=== PATIENT | male | born 1945 | race African-American/Black ===

== ENCOUNTER → 2016-03-19 | Day surgery (SDC) | payer MEDICARE, BC ==
[~2016-03-19] MED LIST: ALLO300T2 PO; AMLO10TA80 PO; ASPI-1035 PO; ATEN50TA PO; CEPH500C2 PO; CLOP75TA2 PO; FERR-63 PO; FINA5TAB11 PO; GABA-290 PO; GABA-531 PO; HYDR-523 PO; LOVA20TA2 PO; LOVA40TA73 PO; METF10002 PO; MORP30TA66 PO; MULT-1146 PO; OMEP20CA10 PO; OXYC10TA48 PO; POTA10TA69 PO; SIMETHICONE 40 MG/0.6 ML 30ML ONE; SODIUM CHLORIDE 0.9% 10ML VIAL ONE; SUCR1ORA PO; TAMS-11 PO; TRAM50TA3 PO; TRIA1CAP6 PO; VALS320T9 PO; ZOLP10TA2 PO
== END | disposition home or self-care (01) ==
LOC: CCL 09:00
PROVIDERS: ATTEND Specialist
DX: D64.9 Anemia, unspecified (principal)
CPT/HCPCS: 37224; 37230; 75710; 88305; 88313; A4216; C1725; C1760; C1769; C1893; C1894

== ENCOUNTER 2016-06-15 18:40 | Inpatient (IN) | payer MEDICARE, BC ==
[~2016-06-15] VITALS: Ht 175.3 cm; Wt 76.7 kg
[~2016-06-15 18:40] MED LIST changes: +AMLO10TA4 PO; +ATEN-42 PO; -CLOP75TA2 PO; +CLOP75TA33 PO; -GABA-531 PO; -HYDR-523 PO; -LOVA40TA73 PO; -MULT-1146 PO; +OXYC-159 PO; -SIMETHICONE 40 MG/0.6 ML 30ML ONE; -SODIUM CHLORIDE 0.9% 10ML VIAL ONE; +TAMS0.4C31 PO; -TRAM50TA3 PO; +ZOLP10TA6 PO
[2016-06-15] MEDS ORDERED: CLONIDINE 0.1MG TABLET PO PRN (19:45)
[2016-06-15 20:00] VITALS: BP 125/66
[2016-06-15] MEDS ORDERED: IPRATROPIUM/ALBUTEROL 0.5-3(2.5)MG/3ML NEB HHN PRN (20:00)
[2016-06-15] MEDS ORDERED: CLONIDINE 0.2MG TABLET PO PRN (20:00)
[2016-06-15] MEDS ORDERED: DEXTROSE 50% WATER 50ML SYRINGE IV PRN (20:15)
[2016-06-15] MEDS ORDERED: GUAIFENESIN 200MG/10ML SUGAR FREE UDC PO PRN (20:15)
[2016-06-15] MEDS ORDERED: DOCUSATE SODIUM 100MG CAPSULE PO PRN (20:15)
[2016-06-15] MEDS ORDERED: NA PHOS,M-B/NA PHOS,DI-BA ENEMA 118ML PR PRN (20:15)
[2016-06-15] MEDS ORDERED: NITROGLYCERIN 0.4MG TABLET SL SL PRN (20:15)
[2016-06-15] MEDS: ASCORBIC ACID 500 MG TABLET PO SCH (20:50)
[2016-06-15] MEDS: SUCRALFATE 1G TABLET PO SCH (20:50)
[2016-06-15] MEDS: METOPROLOL TARTRATE 25MG TABLET PO SCH (20:50)
[2016-06-15] MEDS: AMLODIPINE 5MG TABLET PO SCH (20:51)
[2016-06-15] MEDS: OXYCODONE HCL 10MG TABLET SR 12HR PO SCH (20:54)
[2016-06-15] MEDS: INSULIN LISPRO 100 UNITS/ML SUBCUT SCH (21:02)
[2016-06-15] MEDS: BLOOD SUGAR DIAGNOSTIC STRIP TEST SCH (21:03)
[2016-06-15] MEDS: ZOLPIDEM TARTRATE 5MG TABLET PO PRN (22:39)
[2016-06-16] MEDS: OXYCODONE HCL 5MG TABLET PO PRN (02:23)
[2016-06-16 06:28] LABS: BASOPHILS % 0.4 % (0.0-2.0); EOSINOPHILS % 0.5 % (0.0-5.0); HEMATOCRIT. 25.6 % (42.0-52.0); HEMOGLOBIN. 8.7 g/dL (14.0-18.0); MEAN CORPUSCULAR HEMOGLOBIN 28.7 pg (28.0-32.0); MEAN CORPUSCULAR HGB CONC 33.9 g/dL (31.0-37.0); MEAN CORPUSCULAR VOLUME 84.6 fL (80.0-94.0); MEAN PLATELET VOLUME 7.1 fl (7.4-10.4); MONOCYTES % 9.8 % (2.0-8.0); NEUTROPHILS % 78.3 % (40.0-76.0); PLATELET 444 x1000/uL (130-400); RED BLOOD CELL COUNT 3.03 mill/uL (4.7-6.1); RED CELL DISTRIBUTION WIDTH 14.9 % (11.6-14.6)
[2016-06-16] MEDS: SUCRALFATE 1G TABLET PO SCH ×4 (06:31→20:52)
[2016-06-16] MEDS: BLOOD SUGAR DIAGNOSTIC STRIP TEST SCH ×4 (06:31→21:47)
[2016-06-16] MEDS: INSULIN LISPRO 100 UNITS/ML SUBCUT SCH ×4 (06:31→20:56)
[2016-06-16 07:00] LABS: ALANINE AMINOTRANSFERASE 24 IU/L (13-61); ANION GAP 9; CALCIUM 9.4 mg/dL (8.5-10.1); CARBON DIOXIDE 29 mEq/L (21-32); CHLORIDE 104 mEq/L (98-107); INDEX HEMOLYSI 1 (1-3); INDEX ICTERIC 1 (1-4); INDEX LIPEMIC 1 (1-3); PREALBUMIN 13.8 mg/dL (20.0-40.0); UREA NITROGEN BLOOD 13 mg/dL (7-21); eGFR > 60 mL/min (>60)
[2016-06-16 08:00] VITALS: BP 146/71
[2016-06-16] MEDS: FAMOTIDINE 20MG TABLET PO SCH ×2 (08:02→17:33)
[2016-06-16] MEDS: METOPROLOL TARTRATE 25MG TABLET PO SCH ×2 (08:02→20:53)
[2016-06-16] MEDS: ALLOPURINOL 100 MG TABLET PO SCH (08:02)
[2016-06-16] MEDS: ASCORBIC ACID 500 MG TABLET PO SCH ×2 (08:02→20:52)
[2016-06-16] MEDS: FINASTERIDE 5MG TABLET PO SCH (08:03)
[2016-06-16] MEDS: AMLODIPINE 5MG TABLET PO SCH ×2 (08:03→20:53)
[2016-06-16] MEDS: TAMSULOSIN HCL 0.4MG SR CAPSULE PO SCH (08:03)
[2016-06-16] MEDS: ZINC SULFATE 220 MG ( 50 ) CAPSULE PO SCH (08:03)
[2016-06-16] MEDS: OXYCODONE HCL 10MG TABLET SR 12HR PO SCH ×2 (08:04→20:52)
[2016-06-16] MEDS: LIDOCAINE 5% PATCH TOP SCH (08:07)
[2016-06-16] MEDS ORDERED: HYDROCODONE/ACETAMINOPHEN 10/325MG TABLET PO PRN (10:30)
[2016-06-16] MEDS: OXYCODONE HCL 10MG TABLET SR 12HR PO PRN (15:14)
[2016-06-16 20:00] VITALS: BP 136/66
[2016-06-16] MEDS ORDERED: LACTULOSE 20G/30ML UDC PO PRN (21:00)
[2016-06-16] MEDS ORDERED: NEOMY SULF/BACITRAC ZN/POLY OINT 28GM TOP SCH (21:00)
[2016-06-17] MEDS: ACETAMINOPHEN 325MG TABLET PO PRN ×2 (00:07→09:49)
[2016-06-17] MEDS: ZOLPIDEM TARTRATE 5MG TABLET PO PRN (00:07)
[2016-06-17] MEDS: OXYCODONE HCL 10MG TABLET SR 12HR PO PRN ×2 (04:01→14:17)
[2016-06-17] MEDS: BLOOD SUGAR DIAGNOSTIC STRIP TEST SCH ×4 (05:58→20:56)
[2016-06-17] MEDS: SUCRALFATE 1G TABLET PO SCH ×4 (05:59→20:57)
[2016-06-17 08:00] VITALS: BP 121/62
[2016-06-17] MEDS: AMLODIPINE 5MG TABLET PO SCH ×2 (08:41→20:58)
[2016-06-17] MEDS: LIDOCAINE 5% PATCH TOP SCH (08:41)
[2016-06-17] MEDS: METOPROLOL TARTRATE 25MG TABLET PO SCH ×2 (08:42→20:57)
[2016-06-17] MEDS: ALLOPURINOL 100 MG TABLET PO SCH (08:42)
[2016-06-17] MEDS: FAMOTIDINE 20MG TABLET PO SCH ×2 (08:42→17:39)
[2016-06-17] MEDS: ASCORBIC ACID 500 MG TABLET PO SCH ×2 (08:43→20:57)
[2016-06-17] MEDS: OXYCODONE HCL 10MG TABLET SR 12HR PO SCH ×2 (08:43→20:58)
[2016-06-17] MEDS: FINASTERIDE 5MG TABLET PO SCH (08:44)
[2016-06-17] MEDS: ZINC SULFATE 220 MG ( 50 ) CAPSULE PO SCH (08:44)
[2016-06-17] MEDS: TAMSULOSIN HCL 0.4MG SR CAPSULE PO SCH (08:44)
[2016-06-17] MEDS: INSULIN LISPRO 100 UNITS/ML SUBCUT SCH ×4 (08:46→21:24)
[2016-06-17] MEDS ORDERED: ZINC SULFATE 220 MG ( 50 ) CAPSULE PO SCH (13:15)
[2016-06-17] MEDS: MUPIROCIN 2% OINT 22GM TOP SCH (17:42)
[2016-06-17] MEDS ORDERED: MUPIROCIN 2% OINT 22GM TOP SCH (18:00)
[2016-06-17] MEDS: HEPARIN 5000 UNITS/ML VIAL SUBCUT SCH (18:02)
[2016-06-17] MEDS: OXYCODONE HCL 5MG TABLET PO PRN (18:03)
[2016-06-17 20:00] VITALS: BP 129/66
[2016-06-17] MEDS: EPOETIN ALFA 10000UNITS/ML VIAL SUBCUT SCH (20:59)
[2016-06-17] MEDS: GABAPENTIN 100MG CAPSULE PO SCH (21:22)
[2016-06-18] MEDS: OXYCODONE HCL 10MG TABLET SR 12HR PO PRN ×3 (02:28→16:39)
[2016-06-18] MEDS: SUCRALFATE 1G TABLET PO SCH ×4 (05:30→21:35)
[2016-06-18] MEDS: GABAPENTIN 100MG CAPSULE PO SCH ×3 (05:30→21:35)
[2016-06-18] MEDS: BLOOD SUGAR DIAGNOSTIC STRIP TEST SCH ×4 (06:26→21:40)
[2016-06-18 06:40] LABS: BASOPHILS % 0.5 % (0.0-2.0); EOSINOPHILS % 0.6 % (0.0-5.0); HEMOGLOBIN. 8.6 g/dL (14.0-18.0); LYMPHOCYTES % 13.5 % (20.0-50.0); MEAN CORPUSCULAR HEMOGLOBIN 28.5 pg (28.0-32.0); MEAN CORPUSCULAR HGB CONC 33.1 g/dL (31.0-37.0); MEAN CORPUSCULAR VOLUME 86.2 fL (80.0-94.0); MONOCYTES % 9.2 % (2.0-8.0); NEUTROPHILS % 76.2 % (40.0-76.0); PLATELET 473 x1000/uL (130-400); RED BLOOD CELL COUNT 3.01 mill/uL (4.7-6.1); RED CELL DISTRIBUTION WIDTH 14.8 % (11.6-14.6); WHITE BLOOD COUNT 9.5 x1000/uL (4.5-11.0)
[2016-06-18 07:05] LABS: ALANINE AMINOTRANSFERASE 25 IU/L (13-61); ALBUMIN 2.1 g/dL (3.4-5.0); ANION GAP 12; CALCIUM 9.4 mg/dL (8.5-10.1); CARBON DIOXIDE 28 mEq/L (21-32); CHLORIDE 102 mEq/L (98-107); HDL CHOLESTEROL 34 mg/dL (40-59); INDEX HEMOLYSI 1 (1-3); INDEX ICTERIC 1 (1-4); INDEX LIPEMIC 1 (1-3); IRON 21 ug/dL (50-175); LDL CHOLESTEROL 71 mg/dL (5-100); MAGNESIUM 1.5 mg/dL (1.8-2.4); PHOSPHORUS 2.5 mg/dL (2.5-4.9); TOTAL IRON BINDING CAPACITY 151 ug/dL (250-450); TRIGLYCERIDE 123 mg/dL (0-150); UREA NITROGEN BLOOD 11 mg/dL (7-21); eGFR > 60 mL/min (>60)
[2016-06-18] MEDS: INSULIN LISPRO 100 UNITS/ML SUBCUT SCH ×4 (07:15→21:00)
[2016-06-18 07:22] LABS: PROSTRATE SPECIFIC AG TOTAL 0.44 ng/mL (0.0-4.0)
[2016-06-18 08:00] VITALS: BP 142/67
[2016-06-18 08:11] LABS: FOLIC ACID (FOLATE) SERUM 11.5 ng/mL (>5.38)
[2016-06-18] MEDS: OXYCODONE HCL 10MG TABLET SR 12HR PO SCH (08:20)
[2016-06-18] MEDS: ZINC SULFATE 220 MG ( 50 ) CAPSULE PO SCH (08:21)
[2016-06-18] MEDS: ASCORBIC ACID 500 MG TABLET PO SCH ×2 (08:21→21:35)
[2016-06-18] MEDS: FAMOTIDINE 20MG TABLET PO SCH ×2 (08:22→16:39)
[2016-06-18] MEDS: ALLOPURINOL 100 MG TABLET PO SCH (08:22)
[2016-06-18] MEDS: TAMSULOSIN HCL 0.4MG SR CAPSULE PO SCH (08:22)
[2016-06-18] MEDS: AMLODIPINE 5MG TABLET PO SCH ×2 (08:22→21:00)
[2016-06-18] MEDS: FINASTERIDE 5MG TABLET PO SCH (08:22)
[2016-06-18] MEDS: METOPROLOL TARTRATE 25MG TABLET PO SCH ×2 (08:22→21:00)
[2016-06-18] MEDS: LIDOCAINE 5% PATCH TOP SCH (08:24)
[2016-06-18] MEDS: HEPARIN 5000 UNITS/ML VIAL SUBCUT SCH ×2 (08:24→21:40)
[2016-06-18] MEDS: MUPIROCIN 2% OINT 22GM TOP SCH ×2 (08:28→16:42)
[2016-06-18] MEDS: FERROUS SULFATE 325MG TABLET PO SCH ×3 (08:39→16:39)
[2016-06-18] MEDS: OXYCODONE HCL 5MG TABLET PO PRN (13:24)
[2016-06-18] MEDS: MAGNESIUM OXIDE 400MG TABLET PO SCH (17:40)
[2016-06-18 20:00] VITALS: BP 116/57
[2016-06-18] MEDS: OXYCODONE HCL 20MG TABLET SR 12HR PO SCH (21:38)
[2016-06-19] MEDS: SUCRALFATE 1G TABLET PO SCH ×4 (05:58→22:18)
[2016-06-19] MEDS: GABAPENTIN 100MG CAPSULE PO SCH ×3 (05:58→22:17)
[2016-06-19] MEDS: BLOOD SUGAR DIAGNOSTIC STRIP TEST SCH ×4 (05:59→21:00)
[2016-06-19] MEDS: INSULIN LISPRO 100 UNITS/ML SUBCUT SCH ×4 (06:43→22:53)
[2016-06-19 08:00] VITALS: BP 150/71
[2016-06-19] MEDS: AMLODIPINE 5MG TABLET PO SCH ×2 (08:04→21:00)
[2016-06-19] MEDS: METOPROLOL TARTRATE 25MG TABLET PO SCH ×2 (08:04→21:00)
[2016-06-19] MEDS: FINASTERIDE 5MG TABLET PO SCH (08:16)
[2016-06-19] MEDS: ASCORBIC ACID 500 MG TABLET PO SCH ×2 (08:16→22:17)
[2016-06-19] MEDS: FAMOTIDINE 20MG TABLET PO SCH ×2 (08:17→17:23)
[2016-06-19] MEDS: TAMSULOSIN HCL 0.4MG SR CAPSULE PO SCH (08:17)
[2016-06-19] MEDS: ZINC SULFATE 220 MG ( 50 ) CAPSULE PO SCH (08:18)
[2016-06-19] MEDS: MAGNESIUM OXIDE 400MG TABLET PO SCH ×2 (08:19→17:23)
[2016-06-19] MEDS: FERROUS SULFATE 325MG TABLET PO SCH ×3 (08:19→17:23)
[2016-06-19] MEDS: ALLOPURINOL 100 MG TABLET PO SCH (08:20)
[2016-06-19] MEDS: OXYCODONE HCL 20MG TABLET SR 12HR PO SCH ×2 (08:21→22:20)
[2016-06-19] MEDS: CYANOCOBALAMIN 1000MCG/ML VIAL IM SCH (08:22)
[2016-06-19] MEDS: HEPARIN 5000 UNITS/ML VIAL SUBCUT SCH (08:26)
[2016-06-19] MEDS: MUPIROCIN 2% OINT 22GM TOP SCH ×2 (08:29→17:26)
[2016-06-19] MEDS: LIDOCAINE 5% PATCH TOP SCH (08:29)
[2016-06-19 08:59] LABS: EOSINOPHILS % 0.7 % (0.0-5.0); HEMATOCRIT. 26.1 % (42.0-52.0); HEMOGLOBIN. 8.5 g/dL (14.0-18.0); LYMPHOCYTES % 10.3 % (20.0-50.0); MEAN CORPUSCULAR HEMOGLOBIN 27.7 pg (28.0-32.0); MEAN CORPUSCULAR HGB CONC 32.5 g/dL (31.0-37.0); MEAN CORPUSCULAR VOLUME 85.3 fL (80.0-94.0); MEAN PLATELET VOLUME 6.5 fl (7.4-10.4); MONOCYTES % 8.6 % (2.0-8.0); NEUTROPHILS % 79.4 % (40.0-76.0); PLATELET 468 x1000/uL (130-400); RED BLOOD CELL COUNT 3.06 mill/uL (4.7-6.1); RED CELL DISTRIBUTION WIDTH 14.9 % (11.6-14.6); WHITE BLOOD COUNT 8.5 x1000/uL (4.5-11.0)
[2016-06-19 09:23] LABS: MAGNESIUM 1.5 mg/dL (1.8-2.4)
[2016-06-19] MEDS: OXYCODONE HCL 5MG TABLET PO PRN (12:16)
[2016-06-19] MEDS: OXYCODONE HCL 10MG TABLET SR 12HR PO PRN (15:41)
[2016-06-19 20:00] VITALS: BP 130/72
[2016-06-19] MEDS ORDERED: MAGNESIUM 2 G PREMIX 50 ML IV NR (21:00)
[2016-06-19] MEDS: LACTULOSE 20G/30ML UDC PO SCH (22:17)
[2016-06-19] MEDS: EPOETIN ALFA 10000UNITS/ML VIAL SUBCUT SCH (22:52)
[2016-06-20 05:39] LABS: BASOPHILS % 0.5 % (0.0-2.0); EOSINOPHILS % 0.7 % (0.0-5.0); HEMATOCRIT. 28.9 % (42.0-52.0); HEMOGLOBIN. 9.4 g/dL (14.0-18.0); LYMPHOCYTES % 29.7 % (20.0-50.0); MEAN CORPUSCULAR HEMOGLOBIN 27.8 pg (28.0-32.0); MEAN CORPUSCULAR HGB CONC 32.6 g/dL (31.0-37.0); MEAN CORPUSCULAR VOLUME 85.1 fL (80.0-94.0); MEAN PLATELET VOLUME 6.8 fl (7.4-10.4); MONOCYTES % 9.5 % (2.0-8.0); NEUTROPHILS % 59.6 % (40.0-76.0); PLATELET 554 x1000/uL (130-400); RED BLOOD CELL COUNT 3.39 mill/uL (4.7-6.1); RED CELL DISTRIBUTION WIDTH 14.9 % (11.6-14.6); WHITE BLOOD COUNT 12.2 x1000/uL (4.5-11.0)
[2016-06-20] MEDS: GABAPENTIN 100MG CAPSULE PO SCH ×3 (06:11→21:30)
[2016-06-20] MEDS: SUCRALFATE 1G TABLET PO SCH ×4 (06:11→21:30)
[2016-06-20] MEDS: BLOOD SUGAR DIAGNOSTIC STRIP TEST SCH ×4 (06:12→21:13)
[2016-06-20] MEDS: OXYCODONE HCL 10MG TABLET SR 12HR PO PRN ×2 (06:21→13:15)
[2016-06-20 07:20] LABS: ANION GAP 14; CALCIUM 9.7 mg/dL (8.5-10.1); CARBON DIOXIDE 27 mEq/L (21-32); CHLORIDE 100 mEq/L (98-107); INDEX HEMOLYSI 1 (1-3); INDEX ICTERIC 1 (1-4); INDEX LIPEMIC 1 (1-3); UREA NITROGEN BLOOD 11 mg/dL (7-21); eGFR > 60 mL/min (>60)
[2016-06-20 08:00] VITALS: BP 123/58
[2016-06-20] MEDS: INSULIN LISPRO 100 UNITS/ML SUBCUT SCH ×4 (09:00→21:00)
[2016-06-20] MEDS: ZINC SULFATE 220 MG ( 50 ) CAPSULE PO SCH (09:16)
[2016-06-20] MEDS: TAMSULOSIN HCL 0.4MG SR CAPSULE PO SCH (09:16)
[2016-06-20] MEDS: FERROUS SULFATE 325MG TABLET PO SCH ×3 (09:16→17:47)
[2016-06-20] MEDS: FINASTERIDE 5MG TABLET PO SCH (09:16)
[2016-06-20] MEDS: LIDOCAINE 5% PATCH TOP SCH (09:17)
[2016-06-20] MEDS: METOPROLOL TARTRATE 25MG TABLET PO SCH ×2 (09:17→21:00)
[2016-06-20] MEDS: ALLOPURINOL 100 MG TABLET PO SCH (09:17)
[2016-06-20] MEDS: AMLODIPINE 5MG TABLET PO SCH ×2 (09:17→21:00)
[2016-06-20] MEDS: LACTULOSE 20G/30ML UDC PO SCH (09:18)
[2016-06-20] MEDS: ASPIRIN 81MG EC TABLET PO SCH (09:18)
[2016-06-20] MEDS: FAMOTIDINE 20MG TABLET PO SCH ×2 (09:18→17:47)
[2016-06-20] MEDS: OXYCODONE HCL 20MG TABLET SR 12HR PO SCH ×2 (09:18→21:31)
[2016-06-20] MEDS: ASCORBIC ACID 500 MG TABLET PO SCH ×2 (09:18→21:30)
[2016-06-20] MEDS: CYANOCOBALAMIN 1000MCG/ML VIAL IM SCH (09:18)
[2016-06-20] MEDS: MAGNESIUM OXIDE 400MG TABLET PO SCH ×3 (09:18→17:46)
[2016-06-20] MEDS: MUPIROCIN 2% OINT 22GM TOP SCH ×2 (09:21→17:47)
[2016-06-20] MEDS: OXYCODONE HCL 5MG TABLET PO PRN (17:47)
[2016-06-20 20:28] VITALS: BP 117/63
[2016-06-21] VITALS (10 sets, daily range): BP systolic 108–159; BP diastolic 51–78
[2016-06-21] MEDS: ZOLPIDEM TARTRATE 5MG TABLET PO PRN (00:34)
[2016-06-21 05:28] LABS: BASOPHILS % 0.7 % (0.0-2.0); EOSINOPHILS % 1.7 % (0.0-5.0); HEMATOCRIT. 24.6 % (42.0-52.0); HEMOGLOBIN. 8.1 g/dL (14.0-18.0); LYMPHOCYTES % 18.4 % (20.0-50.0); MEAN CORPUSCULAR HEMOGLOBIN 28.2 pg (28.0-32.0); MEAN CORPUSCULAR HGB CONC 32.9 g/dL (31.0-37.0); MEAN CORPUSCULAR VOLUME 85.7 fL (80.0-94.0); MEAN PLATELET VOLUME 6.8 fl (7.4-10.4); MONOCYTES % 11.2 % (2.0-8.0); PLATELET 434 x1000/uL (130-400); RED BLOOD CELL COUNT 2.87 mill/uL (4.7-6.1); RED CELL DISTRIBUTION WIDTH 14.7 % (11.6-14.6); WHITE BLOOD COUNT 6.8 x1000/uL (4.5-11.0)
[2016-06-21] MEDS: SUCRALFATE 1G TABLET PO SCH ×4 (06:10→23:34)
[2016-06-21] MEDS: BLOOD SUGAR DIAGNOSTIC STRIP TEST SCH ×4 (06:10→21:00)
[2016-06-21 06:26] LABS: MAGNESIUM 1.8 mg/dL (1.8-2.4)
[2016-06-21] MEDS: INSULIN LISPRO 100 UNITS/ML SUBCUT SCH ×4 (06:40→21:00)
[2016-06-21] MEDS: CYANOCOBALAMIN 1000MCG/ML VIAL IM SCH (08:45)
[2016-06-21] MEDS: LACTULOSE 20G/30ML UDC PO SCH (08:45)
[2016-06-21] MEDS: ASPIRIN 81MG EC TABLET PO SCH (08:46)
[2016-06-21] MEDS: OXYCODONE HCL 20MG TABLET SR 12HR PO SCH ×2 (08:46→23:33)
[2016-06-21] MEDS: MUPIROCIN 2% OINT 22GM TOP SCH ×2 (08:47→16:46)
[2016-06-21] MEDS: MAGNESIUM OXIDE 400MG TABLET PO SCH ×2 (08:48→16:44)
[2016-06-21] MEDS: ZINC SULFATE 220 MG ( 50 ) CAPSULE PO SCH (08:48)
[2016-06-21] MEDS: ASCORBIC ACID 500 MG TABLET PO SCH ×2 (08:48→23:34)
[2016-06-21] MEDS: FAMOTIDINE 20MG TABLET PO SCH ×2 (08:48→16:44)
[2016-06-21] MEDS: FINASTERIDE 5MG TABLET PO SCH (08:48)
[2016-06-21] MEDS: FERROUS SULFATE 325MG TABLET PO SCH ×3 (08:48→16:44)
[2016-06-21] MEDS: TAMSULOSIN HCL 0.4MG SR CAPSULE PO SCH (08:49)
[2016-06-21] MEDS: METOPROLOL TARTRATE 25MG TABLET PO SCH ×2 (08:49→23:35)
[2016-06-21] MEDS: ALLOPURINOL 100 MG TABLET PO SCH (08:49)
[2016-06-21] MEDS: AMLODIPINE 5MG TABLET PO SCH ×2 (08:49→23:34)
[2016-06-21] MEDS: LIDOCAINE 5% PATCH TOP SCH (08:56)
[2016-06-21 09:06] LABS: 25-HYDROXY VITAMIN D3 18 ng/mL (.)
[2016-06-21] MEDS ORDERED: BISACODYL 10MG SUPP PR NR (10:00)
[2016-06-21] MEDS ORDERED: LACTULOSE 20G/30ML UDC PO PRN (10:15)
[2016-06-21] MEDS ORDERED: DIPHENHYDRAMINE 25MG CAPSULE PO NR (11:30)
[2016-06-21] MEDS ORDERED: ACETAMINOPHEN 500MG TABLET PO NR (11:30)
[2016-06-21] MEDS: OXYCODONE HCL 10MG TABLET SR 12HR PO PRN (14:24)
[2016-06-21] MEDS: DOCUSATE SODIUM 100MG CAPSULE PO SCH (16:47)
[2016-06-21] MEDS: POLYETHYLENE GLYCOL 3350 (17GM) 1 DOSE PACK PO SCH (21:00)
[2016-06-21] MEDS: GABAPENTIN 100MG CAPSULE PO SCH (23:33)
[2016-06-21] MEDS: EPOETIN ALFA 10000UNITS/ML VIAL SUBCUT SCH (23:37)
[2016-06-22 00:37] VITALS: BP 164/71
[2016-06-22 00:52] VITALS: BP 165/70
[2016-06-22] MEDS: ZOLPIDEM TARTRATE 5MG TABLET PO PRN ×2 (02:31→23:29)
[2016-06-22] MEDS: INSULIN LISPRO 100 UNITS/ML SUBCUT SCH ×4 (05:49→20:51)
[2016-06-22] MEDS: SUCRALFATE 1G TABLET PO SCH ×4 (05:49→20:27)
[2016-06-22] MEDS: BLOOD SUGAR DIAGNOSTIC STRIP TEST SCH ×4 (05:49→20:51)
[2016-06-22 08:00] VITALS: BP 158/66
[2016-06-22] MEDS: TAMSULOSIN HCL 0.4MG SR CAPSULE PO SCH (09:27)
[2016-06-22] MEDS: FAMOTIDINE 20MG TABLET PO SCH ×2 (09:27→17:13)
[2016-06-22] MEDS: ASPIRIN 81MG EC TABLET PO SCH (09:27)
[2016-06-22] MEDS: ALLOPURINOL 100 MG TABLET PO SCH (09:28)
[2016-06-22] MEDS: FERROUS SULFATE 325MG TABLET PO SCH ×3 (09:28→17:13)
[2016-06-22] MEDS: AMLODIPINE 5MG TABLET PO SCH ×2 (09:28→20:27)
[2016-06-22] MEDS: ASCORBIC ACID 500 MG TABLET PO SCH ×2 (09:28→20:27)
[2016-06-22] MEDS: FINASTERIDE 5MG TABLET PO SCH (09:28)
[2016-06-22] MEDS: MAGNESIUM OXIDE 400MG TABLET PO SCH ×2 (09:28→17:13)
[2016-06-22] MEDS: METOPROLOL TARTRATE 25MG TABLET PO SCH ×2 (09:28→21:07)
[2016-06-22] MEDS: CYANOCOBALAMIN 1000MCG/ML VIAL IM SCH (09:29)
[2016-06-22] MEDS: ZINC SULFATE 220 MG ( 50 ) CAPSULE PO SCH (09:29)
[2016-06-22] MEDS: LACTULOSE 20G/30ML UDC PO SCH (09:29)
[2016-06-22] MEDS: DOCUSATE SODIUM 100MG CAPSULE PO SCH ×2 (09:29→17:13)
[2016-06-22] MEDS: LIDOCAINE 5% PATCH TOP SCH (09:30)
[2016-06-22] MEDS ORDERED: ERGOCALCIFEROL 50000UNITS CAPSULE PO SCH (09:30)
[2016-06-22] MEDS: OXYCODONE HCL 20MG TABLET SR 12HR PO SCH ×2 (09:31→20:27)
[2016-06-22] MEDS: MUPIROCIN 2% OINT 22GM TOP SCH ×2 (10:49→17:14)
[2016-06-22 11:36] LABS: BASOPHILS % 0.6 % (0.0-2.0); EOSINOPHILS % 1.7 % (0.0-5.0); HEMATOCRIT. 33.9 % (42.0-52.0); HEMOGLOBIN. 11.3 g/dL (14.0-18.0); LYMPHOCYTES % 12.1 % (20.0-50.0); MEAN CORPUSCULAR HEMOGLOBIN 28.3 pg (28.0-32.0); MEAN CORPUSCULAR HGB CONC 33.4 g/dL (31.0-37.0); MEAN CORPUSCULAR VOLUME 84.7 fL (80.0-94.0); MONOCYTES % 8.9 % (2.0-8.0); NEUTROPHILS % 76.7 % (40.0-76.0); PLATELET 462 x1000/uL (130-400); RED CELL DISTRIBUTION WIDTH 15.1 % (11.6-14.6); WHITE BLOOD COUNT 8.2 x1000/uL (4.5-11.0)
[2016-06-22 11:55] LABS: ALANINE AMINOTRANSFERASE 22 IU/L (13-61); ALBUMIN 2.2 g/dL (3.4-5.0); ANION GAP 10; CALCIUM 9.2 mg/dL (8.5-10.1); CARBON DIOXIDE 30 mEq/L (21-32); CHLORIDE 103 mEq/L (98-107); INDEX HEMOLYSI 1 (1-3); INDEX ICTERIC 1 (1-4); INDEX LIPEMIC 1 (1-3); MAGNESIUM 1.7 mg/dL (1.8-2.4); PHOSPHORUS 2.5 mg/dL (2.5-4.9); UREA NITROGEN BLOOD 8 mg/dL (7-21); eGFR > 60 mL/min (>60)
[2016-06-22] MEDS: OXYCODONE HCL 10MG TABLET SR 12HR PO PRN (15:01)
[2016-06-22 20:00] VITALS: BP 115/81
[2016-06-22] MEDS: POLYETHYLENE GLYCOL 3350 (17GM) 1 DOSE PACK PO SCH (20:26)
[2016-06-22] MEDS: GABAPENTIN 100MG CAPSULE PO SCH (20:26)
[2016-06-23] MEDS: BLOOD SUGAR DIAGNOSTIC STRIP TEST SCH ×4 (06:11→21:00)
[2016-06-23] MEDS: SUCRALFATE 1G TABLET PO SCH ×4 (06:28→22:16)
[2016-06-23 06:48] LABS: BASOPHILS % 0.8 % (0.0-2.0); EOSINOPHILS % 1.7 % (0.0-5.0); HEMATOCRIT. 34.9 % (42.0-52.0); HEMOGLOBIN. 11.7 g/dL (14.0-18.0); LYMPHOCYTES % 18.4 % (20.0-50.0); MEAN CORPUSCULAR HEMOGLOBIN 28.4 pg (28.0-32.0); MEAN CORPUSCULAR HGB CONC 33.4 g/dL (31.0-37.0); MONOCYTES % 10.8 % (2.0-8.0); NEUTROPHILS % 68.3 % (40.0-76.0); PLATELET 450 x1000/uL (130-400); RED BLOOD CELL COUNT 4.11 mill/uL (4.7-6.1); RED CELL DISTRIBUTION WIDTH 14.6 % (11.6-14.6); WHITE BLOOD COUNT 7.4 x1000/uL (4.5-11.0)
[2016-06-23] MEDS: INSULIN LISPRO 100 UNITS/ML SUBCUT SCH ×4 (07:19→22:20)
[2016-06-23 08:00] VITALS: BP 145/72
[2016-06-23 08:02] LABS: CHLORIDE 102 mEq/L (98-107); INDEX HEMOLYSI 1 (1-3); INDEX ICTERIC 1 (1-4); INDEX LIPEMIC 1 (1-3)
[2016-06-23 08:13] LABS: ANION GAP 13; CALCIUM 9.1 mg/dL (8.5-10.1); CARBON DIOXIDE 28 mEq/L (21-32); MAGNESIUM 1.7 mg/dL (1.8-2.4); UREA NITROGEN BLOOD 9 mg/dL (7-21); eGFR > 60 mL/min (>60)
[2016-06-23] MEDS: OXYCODONE HCL 20MG TABLET SR 12HR PO SCH ×2 (08:38→22:19)
[2016-06-23] MEDS: LIDOCAINE 5% PATCH TOP SCH (08:39)
[2016-06-23] MEDS: LACTULOSE 20G/30ML UDC PO SCH ×4 (08:42→21:00)
[2016-06-23] MEDS: AMLODIPINE 5MG TABLET PO SCH ×2 (08:44→22:18)
[2016-06-23] MEDS: METOPROLOL TARTRATE 25MG TABLET PO SCH ×2 (08:44→22:17)
[2016-06-23] MEDS: TAMSULOSIN HCL 0.4MG SR CAPSULE PO SCH (08:44)
[2016-06-23] MEDS: FAMOTIDINE 20MG TABLET PO SCH ×2 (08:44→17:16)
[2016-06-23] MEDS: MAGNESIUM OXIDE 400MG TABLET PO SCH ×2 (08:44→17:16)
[2016-06-23] MEDS: ASPIRIN 81MG EC TABLET PO SCH (08:45)
[2016-06-23] MEDS: DOCUSATE SODIUM 100MG CAPSULE PO SCH ×2 (09:29→17:16)
[2016-06-23] MEDS: FINASTERIDE 5MG TABLET PO SCH (09:29)
[2016-06-23] MEDS: ALLOPURINOL 100 MG TABLET PO SCH (09:29)
[2016-06-23] MEDS: ZINC SULFATE 220 MG ( 50 ) CAPSULE PO SCH (09:29)
[2016-06-23] MEDS: FERROUS SULFATE 325MG TABLET PO SCH ×3 (09:29→17:16)
[2016-06-23] MEDS: ASCORBIC ACID 500 MG TABLET PO SCH ×2 (09:29→22:16)
[2016-06-23] MEDS ORDERED: MAGNESIUM 2 G PREMIX 50 ML IV SCH (10:00)
[2016-06-23] MEDS: OXYCODONE HCL 5MG TABLET PO PRN (12:40)
[2016-06-23] MEDS: BISACODYL 10MG SUPP PR SCH (17:15)
[2016-06-23] MEDS: OXYCODONE HCL 10MG TABLET SR 12HR PO PRN (17:16)
[2016-06-23 19:00] VITALS: BP 142/74
[2016-06-23] MEDS: POLYETHYLENE GLYCOL 3350 (17GM) 1 DOSE PACK PO SCH (21:00)
[2016-06-23] MEDS: GABAPENTIN 100MG CAPSULE PO SCH (22:16)
[2016-06-24] MEDS: ZOLPIDEM TARTRATE 5MG TABLET PO PRN (00:07)
[2016-06-24] MEDS: BLOOD SUGAR DIAGNOSTIC STRIP TEST SCH ×4 (05:48→21:00)
[2016-06-24] MEDS: SUCRALFATE 1G TABLET PO SCH ×4 (05:49→21:59)
[2016-06-24] MEDS: INSULIN LISPRO 100 UNITS/ML SUBCUT SCH ×4 (06:10→21:00)
[2016-06-24 06:19] LABS: BASOPHILS % 1.1 % (0.0-2.0); EOSINOPHILS % 1.8 % (0.0-5.0); HEMATOCRIT. 34.1 % (42.0-52.0); HEMOGLOBIN. 11.2 g/dL (14.0-18.0); LYMPHOCYTES % 21.5 % (20.0-50.0); MEAN CORPUSCULAR HEMOGLOBIN 28.3 pg (28.0-32.0); MEAN CORPUSCULAR HGB CONC 32.8 g/dL (31.0-37.0); MEAN CORPUSCULAR VOLUME 86.1 fL (80.0-94.0); MEAN PLATELET VOLUME 7.1 fl (7.4-10.4); MONOCYTES % 12.3 % (2.0-8.0); NEUTROPHILS % 63.3 % (40.0-76.0); PLATELET 414 x1000/uL (130-400); RED BLOOD CELL COUNT 3.96 mill/uL (4.7-6.1); RED CELL DISTRIBUTION WIDTH 15.2 % (11.6-14.6); WHITE BLOOD COUNT 6.6 x1000/uL (4.5-11.0)
[2016-06-24 06:58] LABS: ANION GAP 12; CALCIUM 8.8 mg/dL (8.5-10.1); CARBON DIOXIDE 27 mEq/L (21-32); CHLORIDE 102 mEq/L (98-107); INDEX HEMOLYSI 1 (1-3); INDEX ICTERIC 1 (1-4); INDEX LIPEMIC 1 (1-3); MAGNESIUM 1.9 mg/dL (1.8-2.4); PHOSPHORUS 2.8 mg/dL (2.5-4.9); UREA NITROGEN BLOOD 9 mg/dL (7-21); eGFR > 60 mL/min (>60)
[2016-06-24 08:00] VITALS: BP 128/59
[2016-06-24] MEDS: DOCUSATE SODIUM 100MG CAPSULE PO SCH ×2 (08:06→16:26)
[2016-06-24] MEDS: ALLOPURINOL 100 MG TABLET PO SCH (08:06)
[2016-06-24] MEDS: ASCORBIC ACID 500 MG TABLET PO SCH ×2 (08:06→23:19)
[2016-06-24] MEDS: FERROUS SULFATE 325MG TABLET PO SCH ×3 (08:06→16:26)
[2016-06-24] MEDS: ASPIRIN 81MG EC TABLET PO SCH (08:06)
[2016-06-24] MEDS: ZINC SULFATE 220 MG ( 50 ) CAPSULE PO SCH (08:06)
[2016-06-24] MEDS: MAGNESIUM OXIDE 400MG TABLET PO SCH (08:06)
[2016-06-24] MEDS: LACTULOSE 20G/30ML UDC PO SCH (08:06)
[2016-06-24] MEDS: FINASTERIDE 5MG TABLET PO SCH (08:06)
[2016-06-24] MEDS: FAMOTIDINE 20MG TABLET PO SCH ×2 (08:06→16:26)
[2016-06-24] MEDS: METOPROLOL TARTRATE 25MG TABLET PO SCH ×2 (08:07→23:19)
[2016-06-24] MEDS: AMLODIPINE 5MG TABLET PO SCH ×2 (08:07→21:58)
[2016-06-24] MEDS: TAMSULOSIN HCL 0.4MG SR CAPSULE PO SCH (08:07)
[2016-06-24] MEDS: LIDOCAINE 5% PATCH TOP SCH (08:08)
[2016-06-24] MEDS: OXYCODONE HCL 10MG TABLET SR 12HR PO PRN ×2 (08:08→16:26)
[2016-06-24] MEDS: BISACODYL 10MG SUPP PR SCH (08:09)
[2016-06-24] MEDS: OXYCODONE HCL 5MG TABLET PO PRN (11:37)
[2016-06-24] MEDS: OXYCODONE HCL 20MG TABLET SR 12HR PO SCH ×2 (12:00→22:01)
[2016-06-24] MEDS: PREGABALIN 75MG CAPSULE PO SCH ×2 (12:21→21:59)
[2016-06-24 20:00] VITALS: BP 134/73
[2016-06-24] MEDS: POLYETHYLENE GLYCOL 3350 (17GM) 1 DOSE PACK PO SCH (21:00)
[2016-06-24] MEDS: GABAPENTIN 100MG CAPSULE PO SCH (21:58)
[2016-06-25] MEDS: SUCRALFATE 1G TABLET PO SCH ×4 (06:07→22:03)
[2016-06-25] MEDS: BLOOD SUGAR DIAGNOSTIC STRIP TEST SCH ×4 (06:07→21:00)
[2016-06-25] MEDS: OXYCODONE HCL 10MG TABLET SR 12HR PO PRN (06:13)
[2016-06-25] MEDS: INSULIN LISPRO 100 UNITS/ML SUBCUT SCH ×4 (06:39→21:00)
[2016-06-25 08:00] VITALS: BP 118/67
[2016-06-25] MEDS: FINASTERIDE 5MG TABLET PO SCH (08:41)
[2016-06-25] MEDS: ZINC SULFATE 220 MG ( 50 ) CAPSULE PO SCH (08:41)
[2016-06-25] MEDS: ASPIRIN 81MG EC TABLET PO SCH (08:41)
[2016-06-25] MEDS: PREGABALIN 75MG CAPSULE PO SCH ×2 (08:41→22:05)
[2016-06-25] MEDS: DOCUSATE SODIUM 100MG CAPSULE PO SCH ×2 (08:42→17:03)
[2016-06-25] MEDS: ASCORBIC ACID 500 MG TABLET PO SCH ×2 (08:42→22:09)
[2016-06-25] MEDS: FAMOTIDINE 20MG TABLET PO SCH ×2 (08:42→17:03)
[2016-06-25] MEDS: ALLOPURINOL 100 MG TABLET PO SCH (08:42)
[2016-06-25] MEDS: FERROUS SULFATE 325MG TABLET PO SCH ×3 (08:42→17:03)
[2016-06-25] MEDS: MAGNESIUM OXIDE 400MG TABLET PO SCH (08:42)
[2016-06-25] MEDS: AMLODIPINE 5MG TABLET PO SCH ×2 (08:42→22:07)
[2016-06-25] MEDS: METOPROLOL TARTRATE 25MG TABLET PO SCH ×2 (08:43→22:05)
[2016-06-25] MEDS: TAMSULOSIN HCL 0.4MG SR CAPSULE PO SCH (08:43)
[2016-06-25] MEDS: LIDOCAINE 5% PATCH TOP SCH (08:44)
[2016-06-25] MEDS: LACTULOSE 20G/30ML UDC PO SCH (08:45)
[2016-06-25] MEDS: BISACODYL 10MG SUPP PR SCH (08:45)
[2016-06-25] MEDS: OXYCODONE HCL 20MG TABLET SR 12HR PO SCH ×2 (10:02→22:09)
[2016-06-25 10:04] VITALS: BP 115/69
[2016-06-25] MEDS: OXYCODONE HCL 5MG TABLET PO PRN (16:47)
[2016-06-25 20:00] VITALS: BP 112/58
[2016-06-25] MEDS: GABAPENTIN 100MG CAPSULE PO SCH (22:06)
[2016-06-25] MEDS: POLYETHYLENE GLYCOL 3350 (17GM) 1 DOSE PACK PO SCH (22:06)
[2016-06-26] MEDS: OXYCODONE HCL 5MG TABLET PO PRN ×3 (03:52→17:59)
[2016-06-26] MEDS: BLOOD SUGAR DIAGNOSTIC STRIP TEST SCH ×4 (06:30→21:00)
[2016-06-26] MEDS: SUCRALFATE 1G TABLET PO SCH ×4 (06:42→22:41)
[2016-06-26 06:54] LABS: BASOPHILS % 0.5 % (0.0-2.0); EOSINOPHILS % 1.8 % (0.0-5.0); HEMATOCRIT. 34.3 % (42.0-52.0); HEMOGLOBIN. 11.1 g/dL (14.0-18.0); LYMPHOCYTES % 21.9 % (20.0-50.0); MEAN CORPUSCULAR HGB CONC 32.2 g/dL (31.0-37.0); MEAN CORPUSCULAR VOLUME 86.8 fL (80.0-94.0); MONOCYTES % 10.8 % (2.0-8.0); PLATELET 428 x1000/uL (130-400); RED BLOOD CELL COUNT 3.95 mill/uL (4.7-6.1); RED CELL DISTRIBUTION WIDTH 15.7 % (11.6-14.6); WHITE BLOOD COUNT 7.1 x1000/uL (4.5-11.0)
[2016-06-26 07:44] LABS: ANION GAP 12; CALCIUM 9.1 mg/dL (8.5-10.1); CARBON DIOXIDE 30 mEq/L (21-32); CHLORIDE 102 mEq/L (98-107); INDEX HEMOLYSI 1 (1-3); INDEX ICTERIC 1 (1-4); INDEX LIPEMIC 1 (1-3); MAGNESIUM 1.7 mg/dL (1.8-2.4); PHOSPHORUS 2.9 mg/dL (2.5-4.9); UREA NITROGEN BLOOD 14 mg/dL (7-21); eGFR > 60 mL/min (>60)
[2016-06-26 08:00] VITALS: BP 125/60
[2016-06-26] MEDS: LIDOCAINE 5% PATCH TOP SCH (08:46)
[2016-06-26] MEDS: OXYCODONE HCL 20MG TABLET SR 12HR PO SCH ×2 (08:49→22:40)
[2016-06-26] MEDS: INSULIN LISPRO 100 UNITS/ML SUBCUT SCH ×4 (09:00→21:00)
[2016-06-26] MEDS: LACTULOSE 20G/30ML UDC PO SCH (09:40)
[2016-06-26] MEDS: ALLOPURINOL 100 MG TABLET PO SCH (09:41)
[2016-06-26] MEDS: FINASTERIDE 5MG TABLET PO SCH (09:41)
[2016-06-26] MEDS: ZINC SULFATE 220 MG ( 50 ) CAPSULE PO SCH (09:41)
[2016-06-26] MEDS: ASCORBIC ACID 500 MG TABLET PO SCH ×2 (09:41→22:40)
[2016-06-26] MEDS: AMLODIPINE 5MG TABLET PO SCH ×2 (09:41→21:00)
[2016-06-26] MEDS: PREGABALIN 75MG CAPSULE PO SCH ×2 (09:41→22:40)
[2016-06-26] MEDS: TAMSULOSIN HCL 0.4MG SR CAPSULE PO SCH (09:41)
[2016-06-26] MEDS: DOCUSATE SODIUM 100MG CAPSULE PO SCH ×2 (09:42→17:57)
[2016-06-26] MEDS: MAGNESIUM OXIDE 400MG TABLET PO SCH (09:42)
[2016-06-26] MEDS: METOPROLOL TARTRATE 25MG TABLET PO SCH ×2 (09:42→21:00)
[2016-06-26] MEDS: ASPIRIN 81MG EC TABLET PO SCH (09:42)
[2016-06-26] MEDS: FERROUS SULFATE 325MG TABLET PO SCH ×3 (09:42→17:57)
[2016-06-26] MEDS: FAMOTIDINE 20MG TABLET PO SCH ×2 (09:42→17:58)
[2016-06-26 20:00] VITALS: BP 119/65
[2016-06-26] MEDS: POLYETHYLENE GLYCOL 3350 (17GM) 1 DOSE PACK PO SCH (21:00)
[2016-06-26] MEDS: GABAPENTIN 100MG CAPSULE PO SCH (22:40)
[2016-06-27] MEDS: BLOOD SUGAR DIAGNOSTIC STRIP TEST SCH ×3 (06:40→17:02)
[2016-06-27] MEDS: INSULIN LISPRO 100 UNITS/ML SUBCUT SCH ×3 (06:40→17:00)
[2016-06-27] MEDS: SUCRALFATE 1G TABLET PO SCH ×3 (06:40→17:00)
[2016-06-27 08:00] VITALS: BP 129/66
[2016-06-27] MEDS: BISACODYL 10MG SUPP PR SCH (08:44)
[2016-06-27] MEDS: DOCUSATE SODIUM 100MG CAPSULE PO SCH ×2 (08:44→17:00)
[2016-06-27] MEDS: LACTULOSE 20G/30ML UDC PO SCH (08:44)
[2016-06-27] MEDS: TAMSULOSIN HCL 0.4MG SR CAPSULE PO SCH (08:45)
[2016-06-27] MEDS: ASPIRIN 81MG EC TABLET PO SCH (08:45)
[2016-06-27] MEDS: FERROUS SULFATE 325MG TABLET PO SCH ×3 (08:45→17:00)
[2016-06-27] MEDS: FAMOTIDINE 20MG TABLET PO SCH ×2 (08:45→17:00)
[2016-06-27] MEDS: PREGABALIN 75MG CAPSULE PO SCH (08:45)
[2016-06-27] MEDS: MAGNESIUM OXIDE 400MG TABLET PO SCH (08:45)
[2016-06-27] MEDS: ZINC SULFATE 220 MG ( 50 ) CAPSULE PO SCH (08:46)
[2016-06-27] MEDS: ASCORBIC ACID 500 MG TABLET PO SCH (08:46)
[2016-06-27] MEDS: ALLOPURINOL 100 MG TABLET PO SCH (08:46)
[2016-06-27] MEDS: FINASTERIDE 5MG TABLET PO SCH (08:46)
[2016-06-27] MEDS: AMLODIPINE 5MG TABLET PO SCH (08:47)
[2016-06-27] MEDS: METOPROLOL TARTRATE 25MG TABLET PO SCH (08:47)
[2016-06-27] MEDS: OXYCODONE HCL 20MG TABLET SR 12HR PO SCH (08:48)
[2016-06-27] MEDS: LIDOCAINE 5% PATCH TOP SCH (08:54)
[2016-06-27 10:49] VITALS: BP 18/129
[2016-06-27 14:45] VITALS: BP 120/60
[2016-06-27] MEDS: OXYCODONE HCL 5MG TABLET PO PRN (14:45)
== END 2016-06-27 19:30 | DRG 299 ==
PROVIDERS: ADMIT Physical Medicine & Rehabilitation Spinal Cord Injury Medicine; ATTEND Internal Medicine
PROC: 30233N1 Transfusion of Nonautologous Red Blood Cells into Peripheral Vein, Percutaneous Approach (ICD-10-PCS; principal; 2016-06-21)
DX: E11.52 Type 2 diabetes mellitus with diabetic peripheral angiopathy with gangrene (principal); A41.9 Sepsis, unspecified organism; E43 Unspecified severe protein-calorie malnutrition; N17.9 Acute kidney failure, unspecified; K92.2 Gastrointestinal hemorrhage, unspecified; I73.9 Peripheral vascular disease, unspecified; I13.10 Hypertensive heart and chronic kidney disease without heart failure, with stage 1 through stage 4 chronic kidney disease, or unspecified chronic kidney disease; N40.0 Benign prostatic hyperplasia without lower urinary tract symptoms; D47.3 Essential (hemorrhagic) thrombocythemia; G89.4 Chronic pain syndrome; N18.9 Chronic kidney disease, unspecified; E78.00 Pure hypercholesterolemia, unspecified; M10.00 Idiopathic gout, unspecified site; G54.6 Phantom limb syndrome with pain; I25.10 Atherosclerotic heart disease of native coronary artery without angina pectoris; E11.40 Type 2 diabetes mellitus with diabetic neuropathy, unspecified; E11.22 Type 2 diabetes mellitus with diabetic chronic kidney disease; D63.8 Anemia in other chronic diseases classified elsewhere; D75.89 Other specified diseases of blood and blood-forming organs; E78.5 Hyperlipidemia, unspecified; K21.9 Gastro-esophageal reflux disease without esophagitis; L89.309 Pressure ulcer of unspecified buttock, unspecified stage; E61.1 Iron deficiency; E55.9 Vitamin D deficiency, unspecified; R26.9 Unspecified abnormalities of gait and mobility; Z90.49 Acquired absence of other specified parts of digestive tract; Z89.512 Acquired absence of left leg below knee; Z85.038 Personal history of other malignant neoplasm of large intestine; Z68.25 Body mass index [BMI] 25.0-25.9, adult; Z79.4 Long term (current) use of insulin; Z78.9 Other specified health status
CPT/HCPCS: 36415; 80048; 80053; 80061; 82270; 82306; 82607; 82728; 82746; 82962; 83036; 83540; 83550; 83735; 84100; 84134; 84153; 84443; 84630; 85025; 86850; 86900; 86920; 93970; 97110; 97112; 97116; 97163; 97166; 97530; 97535; A6261; J0885; J1644; J1815; J3420; J3475; J7050; P9016; Q0163

== ENCOUNTER 2016-12-10 06:37 | Inpatient (IN) | payer MEDICARE, BC ==
[2016-12-10] VITALS (24 sets, daily range): BP systolic 140–190; BP diastolic 62–112
[~2016-12-10] VITALS: Ht 175.3 cm; Wt 94.9 kg
[2016-12-10] MEDS ORDERED: ALLO100T PO (07:34)
[2016-12-10] MEDS ORDERED: GABA-531 PO (07:34)
[2016-12-10] MEDS ORDERED: MINO2.5T19 PO (07:34)
[2016-12-10] MEDS ORDERED: ASPI-1159 PO (07:34)
[2016-12-10] MEDS ORDERED: TAMS0.4C31 PO (07:34)
[2016-12-10] MEDS ORDERED: METF10002 PO (07:34)
[2016-12-10] MEDS ORDERED: HYDR-4135 PO (07:34)
[2016-12-10] MEDS ORDERED: METO100T5 PO (07:34)
[2016-12-10] MEDS ORDERED: MULT-1234 PO (07:34)
[2016-12-10] MEDS ORDERED: VALS320T2 PO (07:34)
[2016-12-10] MEDS ORDERED: FINA5TAB11 PO (07:34)
[2016-12-10] MEDS ORDERED: IODIXANOL 320MG/ML 100 ML BOTTLE IV ONE (07:48)
[2016-12-10] MEDS ORDERED: LIDOCAINE HCL 1% 20ML VIAL (Pyxis) INJ ONE (07:49)
[2016-12-10] MEDS ORDERED: MIDAZOLAM HCL 5 MG/5 ML VIAL ONE (08:30)
[2016-12-10] MEDS ORDERED: FENTANYL CITRATE/PF 50MCG/ML 2ML VIAL ONE (08:30)
[2016-12-10] MEDS ORDERED: HYDROMORPHONE HCL/PF 2MG/ML (OR) ONE (08:30)
[2016-12-10] MEDS ORDERED: IOVERSOL 240MG/ML 100ML BOTTLE IV ONE (09:24)
[2016-12-10] MEDS ORDERED: ATROPINE SULFATE 1MG/10ML SYR IV PRN (11:00)
[2016-12-10] MEDS ORDERED: DEXTROSE 50% WATER 50ML SYRINGE IV PRN (11:00)
[2016-12-10] MEDS ORDERED: ACETAMINOPHEN 325MG TABLET PO PRN (11:00)
[2016-12-10] MEDS ORDERED: ONDANSETRON HCL 4MG/2ML VIAL IV PRN (11:00)
[2016-12-10] MEDS ORDERED: CLOPIDOGREL 75MG TABLET ONE (11:08)
[2016-12-10] MEDS: BLOOD SUGAR DIAGNOSTIC STRIP TEST SCH ×3 (11:58→21:44)
[2016-12-10] MEDS: INSULIN LISPRO 100 UNITS/ML SUBCUT SCH ×3 (11:59→21:00)
[2016-12-10] MEDS ORDERED: INFLUENZA VIRUS VACCINE 0.5ML SYR IM ONE (12:00)
[2016-12-10] MEDS ORDERED: SODIUM CHLORIDE 0.45% 1,000 ML IV NR (12:00)
[2016-12-10] MEDS: SUCRALFATE 1G TABLET PO SCH ×3 (12:01→21:48)
[2016-12-10] MEDS ORDERED: HEPARIN SODIUM 1,000 UNIT/1ML VIAL IV ONE (12:16)
[2016-12-10] MEDS ORDERED: CLONIDINE 0.1MG TABLET PO NR (15:15)
[2016-12-10] MEDS ORDERED: CLONIDINE 0.1MG TABLET PO PRN (15:15)
[2016-12-11] VITALS (9 sets, daily range): BP systolic 149–176; BP diastolic 54–81
[2016-12-11] MEDS: BLOOD SUGAR DIAGNOSTIC STRIP TEST SCH ×2 (06:31→11:59)
[2016-12-11] MEDS: INSULIN LISPRO 100 UNITS/ML SUBCUT SCH ×2 (06:32→11:59)
[2016-12-11 06:37] LABS: BASOPHILS % 0.7 % (0.0-2.0); HEMATOCRIT. 28.6 % (42.0-52.0); HEMOGLOBIN. 9.6 g/dL (14.0-18.0); LYMPHOCYTES % 19.8 % (20.0-50.0); MEAN CORPUSCULAR HEMOGLOBIN 28.4 pg (28.0-32.0); MEAN PLATELET VOLUME 8.2 fl (7.4-10.4); MONOCYTES % 12.7 % (2.0-8.0); NEUTROPHILS % 65.8 % (40.0-76.0); PLATELET 205 x1000/uL (130-400); RED CELL DISTRIBUTION WIDTH 15.5 % (11.6-14.6)
[2016-12-11] MEDS ORDERED: OMEPRAZOLE 20MG CAPSULE EXTENDED RELEASE PO SCH (06:50)
[2016-12-11 07:54] LABS: CARBON DIOXIDE 23 mEq/L (21-32); CHLORIDE 110 mEq/L (98-107)
[2016-12-11] MEDS ORDERED: TAMSULOSIN HCL 0.4MG SR CAPSULE PO SCH (09:00)
[2016-12-11] MEDS ORDERED: ASPIRIN 81MG EC TABLET PO SCH (09:00)
[2016-12-11] MEDS ORDERED: MINOXIDIL 10MG TABLET PO SCH (09:00)
[2016-12-11] MEDS ORDERED: FINASTERIDE 5MG TABLET PO SCH (09:00)
[2016-12-11] MEDS ORDERED: METOPROLOL TARTRATE 100MG TABLET PO SCH (09:00)
[2016-12-11] MEDS ORDERED: HYDRALAZINE HCL 50MG TABLET PO SCH (09:00)
[2016-12-11] MEDS ORDERED: ALLOPURINOL 100 MG TABLET PO SCH (09:00)
[2016-12-11] MEDS ORDERED: CLOPIDOGREL 75MG TABLET PO SCH (09:00)
[2016-12-11] MEDS ORDERED: GABAPENTIN 300MG CAPSULE PO SCH (09:00)
[2016-12-11] MEDS: SUCRALFATE 1G TABLET PO SCH ×2 (09:13→12:59)
== END 2016-12-11 13:52 | disposition home or self-care (01) | DRG 254 ==
LOC: CCL 06:37 → 3WST 06:38
PROVIDERS: ADMIT Specialist; ATTEND Specialist
PROC: B41F1ZZ Fluoroscopy of Right Lower Extremity Arteries using Low Osmolar Contrast (ICD-10-PCS; principal; 2016-12-10)
PROC: 047H3D1 Dilation of Right External Iliac Artery with Intraluminal Device, using Drug-Coated Balloon, Percutaneous Approach (ICD-10-PCS; 2016-12-10)
PROC: 047K3D1 Dilation of Right Femoral Artery with Intraluminal Device, using Drug-Coated Balloon, Percutaneous Approach (ICD-10-PCS; 2016-12-10)
DX: T82.856A Stenosis of peripheral vascular stent, initial encounter (principal); E11.51 Type 2 diabetes mellitus with diabetic peripheral angiopathy without gangrene; D63.8 Anemia in other chronic diseases classified elsewhere; G54.6 Phantom limb syndrome with pain; I11.9 Hypertensive heart disease without heart failure; E78.5 Hyperlipidemia, unspecified; G89.4 Chronic pain syndrome; I70.8 Atherosclerosis of other arteries; M10.9 Gout, unspecified; N40.0 Benign prostatic hyperplasia without lower urinary tract symptoms; Y83.8 Other surgical procedures as the cause of abnormal reaction of the patient, or of later complication, without mention of misadventure at the time of the procedure; Z85.038 Personal history of other malignant neoplasm of large intestine; Z89.512 Acquired absence of left leg below knee
CPT/HCPCS: 36415; 37221; 75710; 80048; 82962; 85025; 85347; 90686; C1725; C1726; C1769; C1887; C1893; C1894; J1170; J1644; J2250; J3010; J3490; Q9967

== ENCOUNTER 2017-03-05 11:32 | Day surgery (SDC) | payer MEDICARE, BC ==
[~2017-03-05] VITALS: Ht 175.3 cm; Wt 95.3 kg
[~2017-03-05 11:32] MED LIST changes: +ALLO100T PO; -ALLO300T2 PO; -AMLO10TA4 PO; -AMLO10TA80 PO; -ASPI-1035 PO; +ASPI-1159 PO; -ATEN-42 PO; -ATEN50TA PO; -CEPH500C2 PO; -CLOP75TA33 PO; -FERR-63 PO; -GABA-290 PO; +GABA-531 PO; +HEPARIN SODIUM 1,000 UNIT/1ML VIAL IV ONE; +HYDR-4135 PO; -LOVA20TA2 PO; +METO100T16 PO; +MINO2.5T19 PO; -MORP30TA66 PO; +MULT-1234 PO; +NICARDIPINE 100MCG/ML 10ML VIAL (CATH LAB) IV ONE; +NITROGLYCERIN 50MCG/ML 10ML VIAL (CATH LAB) IV ONE; -OMEP20CA10 PO; -OXYC-159 PO; -OXYC10TA48 PO; -POTA10TA69 PO; -SUCR1ORA PO; -TAMS-11 PO; -TRIA1CAP6 PO; +VALS320T2 PO; -VALS320T9 PO; -ZOLP10TA2 PO; -ZOLP10TA6 PO
[2017-03-05] MEDS ORDERED: APIX2.5T PO (12:24)
[2017-03-05] MEDS ORDERED: TRIA1TAB94 PO (12:24)
[2017-03-05] MEDS ORDERED: IODIXANOL 320MG/ML 100 ML BOTTLE IV ONE (12:43)
[2017-03-05] MEDS ORDERED: LIDOCAINE HCL 1% 20ML VIAL (Pyxis) INJ ONE (12:43)
[2017-03-05] MEDS ORDERED: MIDAZOLAM HCL 2 MG/2 ML VIAL ONE ×2 (12:51→13:05)
[2017-03-05] MEDS ORDERED: FENTANYL CITRATE/PF 50MCG/ML 2ML VIAL ONE (12:51)
[2017-03-05] MEDS ORDERED: ATROPINE SULFATE 1MG/10ML SYR IV PRN (13:30)
[2017-03-05] MEDS ORDERED: ACETAMINOPHEN 325MG TABLET PO PRN (13:30)
== END 2017-03-05 16:10 | disposition home or self-care (01) ==
LOC: CCL 11:32
PROVIDERS: ATTEND Specialist
DX: I25.110 Atherosclerotic heart disease of native coronary artery with unstable angina pectoris (principal); I45.10 Unspecified right bundle-branch block; I11.0 Hypertensive heart disease with heart failure; I50.9 Heart failure, unspecified; E11.51 Type 2 diabetes mellitus with diabetic peripheral angiopathy without gangrene; J44.9 Chronic obstructive pulmonary disease, unspecified; M10.9 Gout, unspecified; N40.0 Benign prostatic hyperplasia without lower urinary tract symptoms; D64.89 Other specified anemias; Z79.02 Long term (current) use of antithrombotics/antiplatelets; Z79.82 Long term (current) use of aspirin; Z79.84 Long term (current) use of oral hypoglycemic drugs; Z85.038 Personal history of other malignant neoplasm of large intestine; Z86.718 Personal history of other venous thrombosis and embolism; Z89.512 Acquired absence of left leg below knee; Z95.5 Presence of coronary angioplasty implant and graft; Z79.01 Long term (current) use of anticoagulants
CPT/HCPCS: 82962; 93458; 99152; 99153; C1769; C1887; C1893; J1644; J2250; J3010; J3490; Q9967

== ENCOUNTER 2017-06-17 18:43 | Inpatient (IN) | payer MEDICARE, BC ==
[~2017-06-17] VITALS: Ht 175.3 cm; Wt 92.1 kg
[~2017-06-17 18:43] MED LIST changes: -HEPARIN SODIUM 1,000 UNIT/1ML VIAL IV ONE; -NICARDIPINE 100MCG/ML 10ML VIAL (CATH LAB) IV ONE; -NITROGLYCERIN 50MCG/ML 10ML VIAL (CATH LAB) IV ONE; +TRIA1TAB94 PO
[2017-06-17 20:06] VITALS: BP 113/58
[2017-06-17 20:20] VITALS: BP 113/58
[2017-06-17] MEDS ORDERED: ZOLPIDEM TARTRATE 5MG TABLET PO PRN (20:30)
[2017-06-17 21:49] VITALS: BP 112/60
[2017-06-17 22:00] VITALS: BP 117/57
[2017-06-17 22:04] LABS: INR 1.1; PARTIAL THROMBOPLASTIN TIME 27.6 sec (23.4-31.0); PROTHROMBIN TIME 11.3 sec (9.4-11.6)
[2017-06-17 22:14] LABS: BASOPHILS % 0.5 % (0.0-2.0); EOSINOPHILS % 0.7 % (0.0-5.0); LYMPHOCYTES % 17.3 % (20.0-50.0); MEAN CORPUSCULAR HEMOGLOBIN 27.5 pg (28.0-32.0); MEAN CORPUSCULAR VOLUME 83.9 fL (80.0-94.0); MEAN PLATELET VOLUME 8.8 fl (7.4-10.4); MONOCYTES % 12.6 % (2.0-8.0); NEUTROPHILS % 68.9 % (40.0-76.0); PLATELET 254 x1000/uL (130-400); RED BLOOD CELL COUNT 2.54 mill/uL (4.7-6.1); RED CELL DISTRIBUTION WIDTH 16.8 % (11.6-14.6)
[2017-06-17 22:17] LABS: HEMATOCRIT. 21.3 % (42.0-52.0)
[2017-06-17] MEDS ORDERED: FUROSEMIDE 40MG/4ML VIAL IVP NR (23:30)
[2017-06-17] MEDS ORDERED: DEXTROSE 50% WATER 50ML SYRINGE IV PRN (23:30)
[2017-06-18] VITALS (24 sets, daily range): BP systolic 98–146; BP diastolic 50–81
[2017-06-18] MEDS ORDERED: FERR325T6 MT (00:28)
[2017-06-18] MEDS ORDERED: SUCR1TAB PO (00:28)
[2017-06-18] MEDS ORDERED: OMEP40CA34 MT (00:28)
[2017-06-18] MEDS ORDERED: ATOR20TA MT (00:28)
[2017-06-18] MEDS ORDERED: MINO2.5T2 PO (00:28)
[2017-06-18] MEDS ORDERED: DOCU-138 PO (00:28)
[2017-06-18] MEDS ORDERED: NORCO PO (00:28)
[2017-06-18] MEDS ORDERED: DOCUSATE SODIUM 100MG CAPSULE PO PRN (00:30)
[2017-06-18] MEDS: IPRATROPIUM/ALBUTEROL 0.5-3(2.5)MG/3ML NEB HHN PRN ×2 (00:41→21:03)
[2017-06-18] MEDS: HYDROCODONE/ACETAMINOPHEN 5/325MG TABLET PO PRN ×3 (01:03→23:58)
[2017-06-18] MEDS: BLOOD SUGAR DIAGNOSTIC STRIP TEST SCH ×4 (05:45→21:24)
[2017-06-18] MEDS: HYDRALAZINE HCL 25MG TABLET PO SCH ×3 (05:50→21:24)
[2017-06-18] MEDS: SUCRALFATE 1G TABLET PO SCH ×4 (06:08→21:24)
[2017-06-18 06:44] LABS: BASOPHILS % 0.7 % (0.0-2.0); LYMPHOCYTES % 18.3 % (20.0-50.0); MEAN CORPUSCULAR HEMOGLOBIN 27.3 pg (28.0-32.0); MEAN CORPUSCULAR VOLUME 83.4 fL (80.0-94.0); MEAN PLATELET VOLUME 8.7 fl (7.4-10.4); MONOCYTES % 13.4 % (2.0-8.0); NEUTROPHILS % 66.6 % (40.0-76.0); PLATELET 224 x1000/uL (130-400); RED BLOOD CELL COUNT 2.22 mill/uL (4.7-6.1)
[2017-06-18 06:58] LABS: CLARITY URINE CLEAR (CLEAR); COLOR URINE YELLOW (YELLOW); KETONES URINE NEGATIVE (NEGATIVE); LEUKOCYTE ESTERASE URINE NEGATIVE (NEGATIVE); NITRITE URINE NEGATIVE (NEGATIVE); OCCULT BLOOD URINE NEGATIVE (NEGATIVE); PROTEIN URINE NEGATIVE (NEGATIVE); SPECIFIC GRAVITY URINE 1.017 (1.005-1.030); UROBILINOGEN URINE 0.2 E.U./dL (0.2-1.0)
[2017-06-18 07:08] LABS: HEMATOCRIT. 18.5 % (42.0-52.0); HEMOGLOBIN. 6.1 g/dL (14.0-18.0)
[2017-06-18] MEDS: INSULIN LISPRO 100 UNITS/ML SUBCUT SCH ×4 (07:20→21:00)
[2017-06-18] MEDS: ALLOPURINOL 100 MG TABLET PO SCH (08:34)
[2017-06-18] MEDS: FERROUS SULFATE 325MG TABLET PO SCH (08:34)
[2017-06-18] MEDS: TAMSULOSIN HCL 0.4MG SR CAPSULE PO SCH (08:34)
[2017-06-18] MEDS: PANTOPRAZOLE SODIUM 40 MG/VIAL IV SCH ×2 (08:35→09:00)
[2017-06-18] MEDS: METOPROLOL TARTRATE 25MG TABLET PO SCH ×2 (08:35→21:24)
[2017-06-18] MEDS ORDERED: FUROSEMIDE 40MG/4ML VIAL IVP SCH ×2 (10:00→11:00)
[2017-06-18] MEDS: FINASTERIDE 5MG TABLET PO SCH (16:16)
[2017-06-18] MEDS ORDERED: ATORVASTATIN CALCIUM 20MG TABLET PO SCH (21:00)
[2017-06-18 21:55] LABS: HEMATOCRIT 26.7 % (42.0-52.0)
[2017-06-19] VITALS (8 sets, daily range): BP systolic 111–148; BP diastolic 54–75
[2017-06-19 00:22] LABS: HEMATOCRIT 23.7 % (42.0-52.0)
[2017-06-19] MEDS: HYDRALAZINE HCL 25MG TABLET PO SCH ×2 (05:57→16:30)
[2017-06-19] MEDS: SUCRALFATE 1G TABLET PO SCH ×3 (05:57→16:34)
[2017-06-19] MEDS: INSULIN LISPRO 100 UNITS/ML SUBCUT SCH ×2 (06:26→11:34)
[2017-06-19] MEDS: BLOOD SUGAR DIAGNOSTIC STRIP TEST SCH ×3 (06:26→16:35)
[2017-06-19 07:16] LABS: BASOPHILS % 0.5 % (0.0-2.0); EOSINOPHILS % 1.1 % (0.0-5.0); HEMATOCRIT. 23.6 % (42.0-52.0); LYMPHOCYTES % 15.8 % (20.0-50.0); MEAN CORPUSCULAR HEMOGLOBIN 28.6 pg (28.0-32.0); MEAN CORPUSCULAR VOLUME 84.8 fL (80.0-94.0); MEAN PLATELET VOLUME 9.1 fl (7.4-10.4); MONOCYTES % 11.1 % (2.0-8.0); NEUTROPHILS % 71.5 % (40.0-76.0); PLATELET 212 x1000/uL (130-400); RED BLOOD CELL COUNT 2.79 mill/uL (4.7-6.1); RED CELL DISTRIBUTION WIDTH 16.8 % (11.6-14.6)
[2017-06-19] MEDS: TAMSULOSIN HCL 0.4MG SR CAPSULE PO SCH (08:28)
[2017-06-19] MEDS: METOPROLOL TARTRATE 25MG TABLET PO SCH (08:28)
[2017-06-19] MEDS: ALLOPURINOL 100 MG TABLET PO SCH (08:28)
[2017-06-19] MEDS: FERROUS SULFATE 325MG TABLET PO SCH (08:28)
[2017-06-19] MEDS: PANTOPRAZOLE SODIUM 40 MG/VIAL IV SCH (08:29)
[2017-06-19 11:01] LABS: TOTAL IRON BINDING CAPACITY 230 ug/dL (250-450)
[2017-06-19 11:22] LABS: FOLIC ACID (FOLATE) SERUM 17.9 ng/mL (>5.38)
[2017-06-19] MEDS: IPRATROPIUM/ALBUTEROL 0.5-3(2.5)MG/3ML NEB HHN PRN (11:48)
[2017-06-19] MEDS: FINASTERIDE 5MG TABLET PO SCH (16:29)
== END 2017-06-19 17:06 | disposition home or self-care (01) | DRG 811 ==
LOC: 3WST 18:43
PROVIDERS: ADMIT Hospitalist; ATTEND Hospitalist
PROC: 05HY33Z Insertion of Infusion Device into Upper Vein, Percutaneous Approach (ICD-10-PCS; principal; 2017-06-18)
PROC: 30233N1 Transfusion of Nonautologous Red Blood Cells into Peripheral Vein, Percutaneous Approach (ICD-10-PCS; 2017-06-18)
DX: D50.9 Iron deficiency anemia, unspecified (principal); N17.0 Acute kidney failure with tubular necrosis; I25.10 Atherosclerotic heart disease of native coronary artery without angina pectoris; N40.0 Benign prostatic hyperplasia without lower urinary tract symptoms; I50.9 Heart failure, unspecified; I11.0 Hypertensive heart disease with heart failure; E11.51 Type 2 diabetes mellitus with diabetic peripheral angiopathy without gangrene; E11.621 Type 2 diabetes mellitus with foot ulcer; M10.9 Gout, unspecified; G54.6 Phantom limb syndrome with pain; E78.5 Hyperlipidemia, unspecified; J44.9 Chronic obstructive pulmonary disease, unspecified; L97.529 Non-pressure chronic ulcer of other part of left foot with unspecified severity; Z85.038 Personal history of other malignant neoplasm of large intestine; Z89.512 Acquired absence of left leg below knee; Z89.612 Acquired absence of left leg above knee; Z90.49 Acquired absence of other specified parts of digestive tract; Z95.5 Presence of coronary angioplasty implant and graft
CPT/HCPCS: 36415; 36569; 71045; 74176; 76937; 80048; 81003; 82607; 82728; 82746; 82962; 83540; 83550; 84484; 85014; 85018; 85025; 85610; 85730; 86850; 86900; 86920; 93005; 93970; 94640; C1725; C9113; J1940; J7050; J7620; P9016

== ENCOUNTER → 2017-10-01 | Outpatient (CLI) | payer MEDICARE, BC ==
[~2017-10-01] MED LIST changes: +ATOR20TA MT; +BARIUM SULFATE(VOLUMEN) 450 ML ORAL.SUSP ONE; +DOCU-138 PO; +FERR325T6 MT; +FURO-152 PO; -GABA-531 PO; -HYDR-4135 PO; +HYDR100T26 PO; +IOHEXOL-350 100 ML BOTTLE ONE; -METF10002 PO; +METF10004 PO; +NORCO PO; +OMEP40CA34 MT; +SUCR1TAB PO; -TRIA1TAB94 PO
== END | disposition home or self-care (01) ==
LOC: CT 07:39
PROVIDERS: ATTEND Internal Medicine Gastroenterology
DX: N40.0 Benign prostatic hyperplasia without lower urinary tract symptoms (principal); K43.9 Ventral hernia without obstruction or gangrene
CPT/HCPCS: 74177; Q9967

== ENCOUNTER 2018-05-02 12:56 | Inpatient (IN) | payer MEDICARE, BC ==
[~2018-05-02] VITALS: Ht 175.3 cm; Wt 95.7 kg
[~2018-05-02 12:56] MED LIST changes: -BARIUM SULFATE(VOLUMEN) 450 ML ORAL.SUSP ONE; -IOHEXOL-350 100 ML BOTTLE ONE; +METF-416 PO; -METF10004 PO
[2018-05-02] MEDS ORDERED: SODIUM CHLORIDE 0.9% 1000ML BAG (SEPSIS BOLUS) IV ONE (14:45)
[2018-05-02 15:36] LABS: CHLORIDE 113 mEq/L (98-107)
[2018-05-02 15:39] LABS: BASOPHILS % 0.6 % (0.0-2.0); EOSINOPHILS % 0.6 % (0.0-5.0); LYMPHOCYTES % 12.4 % (20.0-50.0); MEAN CORPUSCULAR HEMOGLOBIN 28.3 pg (28.0-32.0); MEAN CORPUSCULAR VOLUME 88.4 fL (80.0-94.0); MEAN PLATELET VOLUME 8.7 fl (7.4-10.4); NEUTROPHILS % 78.4 % (40.0-76.0); PLATELET 235 x1000/uL (130-400); RED BLOOD CELL COUNT 2.25 mill/uL (4.7-6.1); RED CELL DISTRIBUTION WIDTH 15.9 % (11.6-14.6)
[2018-05-02 15:41] LABS: HEMOGLOBIN. 6.4 g/dL (14.0-18.0)
[2018-05-02 15:42] LABS: HEMATOCRIT. 19.9 % (42.0-52.0)
[2018-05-02 15:48] LABS: CLARITY URINE CLOUDY (CLEAR); COLOR URINE YELLOW (YELLOW); KETONES URINE TRACE (NEGATIVE); LEUKOCYTE ESTERASE URINE TRACE (NEGATIVE); NITRITE URINE NEGATIVE (NEGATIVE); OCCULT BLOOD URINE NEGATIVE (NEGATIVE); PROTEIN URINE 2+ (NEGATIVE); SPECIFIC GRAVITY URINE 1.021 (1.005-1.030); UROBILINOGEN URINE 0.2 E.U./dL (0.2-1.0)
[2018-05-02 15:52] LABS: INR 1.1; PARTIAL THROMBOPLASTIN TIME 32.9 sec (23.4-31.0); PROTHROMBIN TIME 11.2 sec (9.1-11.1)
[2018-05-02] MEDS ORDERED: DEXTROSE 50% WATER 50ML SYRINGE IV ONE (16:00)
[2018-05-02] MEDS ORDERED: ALBUTEROL (0.083%) 2.5MG/3ML NEB HHN ONE (16:00)
[2018-05-02] MEDS ORDERED: SODIUM BICARBONATE 8.4% 1 MEQ/ML 50ML SYR IV ONE (16:00)
[2018-05-02] MEDS ORDERED: INSULIN REGULAR (HUMULIN R) 300UNITS/3ML IV ONE (16:00)
[2018-05-02] MEDS ORDERED: CEFTRIAXONE 1 G PREMIX 50 ML IV ONE (16:00)
[2018-05-02] MEDS ORDERED: SODIUM POLYSTYRENE SULFONATE 15 G/60 ML BOT PO ONE (16:00)
[2018-05-02] MEDS ORDERED: ASPIRIN 81MG TABLET PO ONE (16:15)
[2018-05-02] MEDS ORDERED: CLONIDINE 0.1MG TABLET PO PRN (19:15)
[2018-05-02] MEDS ORDERED: ACETAMINOPHEN 325MG TABLET PO PRN (19:15)
[2018-05-02] MEDS ORDERED: ONDANSETRON HCL 4MG/2ML INJ IV PRN (19:15)
[2018-05-02 20:00] VITALS: BP 110/49
[2018-05-02 20:20] VITALS: BP 110/49
[2018-05-02] MEDS ORDERED: INSULIN LISPRO 100 UNITS/ML SUBCUT SCH (21:00)
[2018-05-02] MEDS ORDERED: DEXTROSE 50% WATER 50ML SYRINGE IV PRN (21:00)
[2018-05-02 22:00] VITALS: BP 109/48
[2018-05-02] MEDS: INSULIN LISPRO 100 UNITS/ML SUBCUT SCH (22:00)
[2018-05-02] MEDS: BLOOD SUGAR DIAGNOSTIC STRIP TEST SCH (22:05)
[2018-05-03] VITALS (12 sets, daily range): BP systolic 93–144; BP diastolic 43–72
[2018-05-03 06:22] LABS: BASOPHILS % 0.4 % (0.0-2.0); EOSINOPHILS % 0.5 % (0.0-5.0); HEMATOCRIT. 22.5 % (42.0-52.0); HEMOGLOBIN. 7.2 g/dL (14.0-18.0); LYMPHOCYTES % 12.6 % (20.0-50.0); MEAN CORPUSCULAR HEMOGLOBIN 28.1 pg (28.0-32.0); MEAN CORPUSCULAR VOLUME 88.1 fL (80.0-94.0); MEAN PLATELET VOLUME 8.8 fl (7.4-10.4); MONOCYTES % 13.1 % (2.0-8.0); NEUTROPHILS % 73.4 % (40.0-76.0); PLATELET 224 x1000/uL (130-400); RED BLOOD CELL COUNT 2.55 mill/uL (4.7-6.1); RED CELL DISTRIBUTION WIDTH 16.2 % (11.6-14.6)
[2018-05-03 07:24] LABS: HEPATITIS B SURFACE ANTIGEN NEGATIVE
[2018-05-03] MEDS: BLOOD SUGAR DIAGNOSTIC STRIP TEST SCH ×4 (07:44→20:40)
[2018-05-03] MEDS: INSULIN LISPRO 100 UNITS/ML SUBCUT SCH ×4 (07:44→20:40)
[2018-05-03] MEDS ORDERED: DEXTROSE 50% WATER 50ML SYRINGE IV NR (08:53)
[2018-05-03] MEDS ORDERED: SODIUM BICARBONATE 8.4% 1 MEQ/ML 50ML SYR IV NR (08:53)
[2018-05-03] MEDS ORDERED: CALCIUM GLUCONATE 1,000 MG in DEXT 5% WATER 90 ML IV NR (08:53)
[2018-05-03] MEDS ORDERED: INSULIN REGULAR (HUMULIN R) UD 100 UNITS/ML SYR IV NR (09:00)
[2018-05-03] MEDS ORDERED: HEPARIN 1000 UNITS/ML 10ML ONE (09:17)
[2018-05-03] MEDS ORDERED: HEPARIN SODIUM 1,000 UNIT/1ML VIAL IV NR (18:45)
[2018-05-03] MEDS: LEVOFLOXACIN 250MG PREMIX 50 ML IV SCH (19:41)
[2018-05-03] MEDS: ATORVASTATIN CALCIUM 40MG TABLET PO SCH (20:39)
[2018-05-03] MEDS: METOPROLOL TARTRATE 25MG TABLET PO SCH (20:40)
[2018-05-04] VITALS (12 sets, daily range): BP systolic 93–133; BP diastolic 46–66
[2018-05-04 07:02] LABS: HEMATOCRIT. 23.9 % (42.0-52.0); HEMOGLOBIN. 7.9 g/dL (14.0-18.0); MEAN CORPUSCULAR HEMOGLOBIN 28.6 pg (28.0-32.0); MEAN CORPUSCULAR VOLUME 86.3 fL (80.0-94.0); MEAN PLATELET VOLUME 9.2 fl (7.4-10.4); PLATELET 176 x1000/uL (130-400); RED BLOOD CELL COUNT 2.78 mill/uL (4.7-6.1); RED CELL DISTRIBUTION WIDTH 15.5 % (11.6-14.6)
[2018-05-04] MEDS: BLOOD SUGAR DIAGNOSTIC STRIP TEST SCH ×4 (07:30→20:54)
[2018-05-04] MEDS: INSULIN LISPRO 100 UNITS/ML SUBCUT SCH ×4 (08:00→20:54)
[2018-05-04] MEDS: METOPROLOL TARTRATE 25MG TABLET PO SCH (10:33)
[2018-05-04] MEDS: IRON SUCROSE COMPLEX 100 MG/5 ML ML IV SCH (14:19)
[2018-05-04 16:37] LABS: PLATELET ESTIMATE NORMAL
[2018-05-04] MEDS: LEVOFLOXACIN 250MG PREMIX 50 ML IV SCH (16:54)
[2018-05-04 17:06] LABS: ANTI-NUCLEAR ANTIBODIES DIRECT Negative (Negative)
[2018-05-04] MEDS: ATORVASTATIN CALCIUM 40MG TABLET PO SCH (21:00)
[2018-05-04] MEDS: CARVEDILOL 6.25 MG TABLET PO SCH (21:00)
[2018-05-05] VITALS (17 sets, daily range): BP systolic 113–135; BP diastolic 45–68
[2018-05-05 06:13] LABS: COMPLEMENT C3 125 mg/dL (82-167)
[2018-05-05 07:21] LABS: BASOPHILS % 0.7 % (0.0-2.0); EOSINOPHILS % 2.6 % (0.0-5.0); HEMATOCRIT. 23.3 % (42.0-52.0); HEMOGLOBIN. 7.7 g/dL (14.0-18.0); LYMPHOCYTES % 23.7 % (20.0-50.0); MEAN CORPUSCULAR HEMOGLOBIN 28.6 pg (28.0-32.0); MEAN CORPUSCULAR VOLUME 86.7 fL (80.0-94.0); MEAN PLATELET VOLUME 8.8 fl (7.4-10.4); MONOCYTES % 11.7 % (2.0-8.0); NEUTROPHILS % 61.3 % (40.0-76.0); PLATELET 168 x1000/uL (130-400); RED BLOOD CELL COUNT 2.69 mill/uL (4.7-6.1); RED CELL DISTRIBUTION WIDTH 15.8 % (11.6-14.6)
[2018-05-05] MEDS: BLOOD SUGAR DIAGNOSTIC STRIP TEST SCH ×2 (07:38→11:52)
[2018-05-05] MEDS: INSULIN LISPRO 100 UNITS/ML SUBCUT SCH ×2 (07:38→12:17)
[2018-05-05 08:16] LABS: A/G RATIO 0.9 (0.7-1.7); ALBUMIN 2.9 g/dL (2.9-4.4); ALPHA-1-GLOBULIN 0.3 g/dL (0.0-0.4); ALPHA-2-GLOBULIN 0.9 g/dL (0.4-1.0); GLOBULIN TOTAL 3.1 g/dL (2.2-3.9); M-SPIKE Not Observed g/dL (Not Observed)
[2018-05-05] MEDS: CARVEDILOL 6.25 MG TABLET PO SCH (09:16)
[2018-05-05] MEDS: IRON SUCROSE COMPLEX 100 MG/5 ML ML IV SCH (12:24)
[2018-05-05] MEDS ORDERED: DOCUSATE SODIUM 250MG CAPSULE PO NR (12:51)
[2018-05-05] MEDS ORDERED: FENTANYL CITRATE/PF 50MCG/ML 2ML VIAL IV ONE (14:10)
[2018-05-05] MEDS ORDERED: SODIUM BICARBONATE 4% (2.4MEQ) 5ML VIAL IV ONE (14:11)
[2018-05-05] MEDS ORDERED: LIDOCAINE HCL 1% 20ML VIAL (Pyxis) INJ ONE (14:12)
[2018-05-05] MEDS ORDERED: FENTANYL CITRATE/PF 50MCG/ML 2ML VIAL ONE (14:16)
[2018-05-05] MEDS ORDERED: EPOETIN ALFA 10000UNITS/ML VIAL SUBCUT SCH (21:00)
== END 2018-05-05 16:07 | disposition home or self-care (01) | DRG 674 ==
LOC: ER 12:56 → 5EST 16:09 → ENRESERV 17:27 → SUPCPDRO 19:07 → 5EST 22:07
PROVIDERS: ADMIT Internal Medicine Nephrology; ATTEND Internal Medicine Nephrology
PROC: 30233N1 Transfusion of Nonautologous Red Blood Cells into Peripheral Vein, Percutaneous Approach (ICD-10-PCS; principal; 2018-05-02)
PROC: 5A1D70Z Performance of Urinary Filtration, Intermittent, Less than 6 Hours Per Day (ICD-10-PCS; 2018-05-03)
PROC: 02HV33Z Insertion of Infusion Device into Superior Vena Cava, Percutaneous Approach (ICD-10-PCS; 2018-05-03)
PROC: B548ZZA Ultrasonography of Superior Vena Cava, Guidance (ICD-10-PCS; 2018-05-03)
PROC: 0JH63XZ Insertion of Tunneled Vascular Access Device into Chest Subcutaneous Tissue and Fascia, Percutaneous Approach (ICD-10-PCS; 2018-05-05)
PROC: 5A1D70Z Performance of Urinary Filtration, Intermittent, Less than 6 Hours Per Day (ICD-10-PCS; 2018-05-05)
PROC: 02HV33Z Insertion of Infusion Device into Superior Vena Cava, Percutaneous Approach (ICD-10-PCS; 2018-05-05)
PROC: B5181ZA Fluoroscopy of Superior Vena Cava using Low Osmolar Contrast, Guidance (ICD-10-PCS; 2018-05-05)
DX: N17.0 Acute kidney failure with tubular necrosis (principal); E44.0 Moderate protein-calorie malnutrition; I13.2 Hypertensive heart and chronic kidney disease with heart failure and with stage 5 chronic kidney disease, or end stage renal disease; E87.2 Acidosis; I50.22 Chronic systolic (congestive) heart failure; K92.2 Gastrointestinal hemorrhage, unspecified; N18.6 End stage renal disease; D50.9 Iron deficiency anemia, unspecified; E87.5 Hyperkalemia; I25.5 Ischemic cardiomyopathy; E11.22 Type 2 diabetes mellitus with diabetic chronic kidney disease; M10.9 Gout, unspecified; E11.51 Type 2 diabetes mellitus with diabetic peripheral angiopathy without gangrene; N40.0 Benign prostatic hyperplasia without lower urinary tract symptoms; I07.1 Rheumatic tricuspid insufficiency; E78.5 Hyperlipidemia, unspecified; I25.10 Atherosclerotic heart disease of native coronary artery without angina pectoris; Z95.1 Presence of aortocoronary bypass graft; Z79.4 Long term (current) use of insulin; Z85.038 Personal history of other malignant neoplasm of large intestine; Z97.14 Presence of artificial left leg (complete) (partial); Z99.2 Dependence on renal dialysis; Z89.512 Acquired absence of left leg below knee; Z79.899 Other long term (current) drug therapy; Z82.49 Family history of ischemic heart disease and other diseases of the circulatory system; Z83.3 Family history of diabetes mellitus
CPT/HCPCS: 36415; 36430; 36558; 36569; 36589; 71045; 76770; 76937; 77001; 80048; 80061; 82550; 82570; 82962; 83036; 83605; 84132; 84145; 84155; 84156; 84165; 84484; 86038; 86160; 86705; 86706; 86803; 86850; 86900; 86920; 87340; 93005; 93306; 96365; 96375; 99152; 99153; 99291; C1750; C1752; C1769; J0610; J0696; J1642; J1644; J1815; J1956; J3010; J3490; J7030; J7060; J7611; P9016; A4315; G0500

== ENCOUNTER 2018-06-30 06:38 | Day surgery (SDC) | payer MEDICARE, BC ==
[~2018-06-30] VITALS: Ht 175.3 cm; Wt 93.4 kg
[~2018-06-30 06:38] MED LIST changes: -ASPI-1159 PO; +ASPI-1393 PO; -FURO-152 PO; -METF-416 PO
[2018-06-30] MEDS ORDERED: LIDOCAINE HCL 1% 20ML VIAL (Pyxis) INJ ONE (07:31)
[2018-06-30] MEDS ORDERED: IODIXANOL 320MG/ML 100 ML BOTTLE IV ONE (07:31)
[2018-06-30] MEDS ORDERED: MIDAZOLAM HCL 2 MG/2 ML VIAL ONE (08:18)
[2018-06-30] MEDS ORDERED: FENTANYL CITRATE/PF 50MCG/ML 2ML VIAL ONE (08:18)
[2018-06-30] MEDS ORDERED: MINO10TA PO (08:33)
[2018-06-30] MEDS ORDERED: ATOR-2 PO (08:33)
[2018-06-30] MEDS ORDERED: POTA20TA12 PO (08:43)
[2018-06-30] MEDS ORDERED: FURO80TA87 PO (08:43)
[2018-06-30] MEDS ORDERED: GABA-531 PO (08:43)
[2018-06-30] MEDS ORDERED: COR6 PO (08:43)
[2018-06-30] MEDS ORDERED: SACU1TAB4 PO (08:43)
[2018-06-30] MEDS ORDERED: DULO60CA63 PO (08:43)
[2018-06-30] MEDS ORDERED: IOHEXOL-300 100 ML BOTTLE ONE (09:08)
[2018-06-30] MEDS ORDERED: ONDANSETRON HCL 4MG/2ML INJ IV PRN (09:45)
[2018-06-30] MEDS ORDERED: ACETAMINOPHEN 325MG TABLET PO PRN (09:45)
[2018-06-30] MEDS ORDERED: NITROGLYCERIN 50MCG/ML 10ML VIAL (CATH LAB) IV ONE (14:50)
[2018-06-30] MEDS ORDERED: NICARDIPINE 100MCG/ML 10ML VIAL (CATH LAB) IV ONE (14:50)
[2018-06-30] MEDS ORDERED: HEPARIN SODIUM 1,000 UNIT/1ML VIAL IV ONE (14:50)
== END 2018-06-30 13:10 | disposition home or self-care (01) ==
LOC: CCL 06:38
PROVIDERS: ATTEND Specialist
DX: I25.10 Atherosclerotic heart disease of native coronary artery without angina pectoris (principal); I73.9 Peripheral vascular disease, unspecified; I25.5 Ischemic cardiomyopathy; I13.0 Hypertensive heart and chronic kidney disease with heart failure and stage 1 through stage 4 chronic kidney disease, or unspecified chronic kidney disease; N18.9 Chronic kidney disease, unspecified; I50.30 Unspecified diastolic (congestive) heart failure; E78.5 Hyperlipidemia, unspecified; Z89.432 Acquired absence of left foot
CPT/HCPCS: 82962; 93458; 99152; 99153; C1769; C1887; C1893; J1644; J2250; J3010; J3490; Q9967; G0500

== ENCOUNTER → 2018-07-16 | Day surgery (SDC) | payer MEDICARE, BC ==
[~2018-07-16] MED LIST changes: +ATOR-2 PO; -ATOR20TA MT; +COR6 PO; +DULO60CA63 PO; +FURO80TA87 PO; +GABA-531 PO; -HYDR100T26 PO; +LIDOCAINE HCL 1% 20ML VIAL (Pyxis) INJ ONE; -METO100T16 PO; +MINO10TA PO; -MINO2.5T19 PO; +POTA20TA12 PO; +SACU1TAB4 PO; -VALS320T2 PO
== END | disposition home or self-care (01) ==
LOC: CCL 09:19
PROVIDERS: ATTEND Specialist
DX: Z45.2 Encounter for adjustment and management of vascular access device (principal)
CPT/HCPCS: 36589; J3490

== ENCOUNTER → 2020-01-02 | Outpatient (CLI) | payer MEDICARE, BC ==
[~2020-01-02] MED LIST changes: -ASPI-1393 PO; +ASPI-1497 PO; -DULO60CA63 PO; +DULO60CA64 PO; -LIDOCAINE HCL 1% 20ML VIAL (Pyxis) INJ ONE; +OMEP40CA12 MT; -OMEP40CA34 MT
== END | disposition home or self-care (01) ==
LOC: LAB 08:57
PROVIDERS: ATTEND Specialist
DX: Z01.812 Encounter for preprocedural laboratory examination (principal); R05 Cough; Z20.828 Contact with and (suspected) exposure to other viral communicable diseases
CPT/HCPCS: 87426

== ENCOUNTER 2020-05-08 10:50 | Inpatient (IN) | payer MEDICARE, BC ==
[~2020-05-08] VITALS: Ht 175.3 cm; Wt 80.5 kg
[~2020-05-08 10:50] MED LIST changes: -GABA-531 PO; +GABA-532 PO
[2020-05-08 11:38] LABS: BG BASE EXCESS -10.9 mmol/L (-2.0-2.0); BG CARBOXYHEMOGLOBIN 0.3 % (0.5-1.5); BG DEOXYHEMOGLOBIN 2.5 % (0.0-5.0); BG FRACTION INSPIRED OXYGEN 21; BG HCO3 ACT 14.3 mmol/L (22.0-26.0); BG METHEMOGLOBIN 0.1 % (0.0-1.5); BG OXYGEN SATURATION 97.5 % (92.0-98.5); BG OXYHEMOGLOBIN 97.1 % (94.0-97.0); BG PCO2 29.3 mmHg (35.0-45.0); BG PH 7.306 (7.350-7.450); BG PO2 103.2 mmHg (75.0-100.0); BG SAMPLE SITE RIGHT RADIAL; BG TOTAL HEMOGLOBIN 9.3 g/dL (12.0-18.0); BG VENT MODE ROOM AIR
[2020-05-08 11:42] LABS: BASOPHILS % 0.6 % (0.0-2.0); EOSINOPHILS % 1.9 % (0.0-5.0); HEMATOCRIT. 27.4 % (42.0-52.0); HEMOGLOBIN. 8.7 g/dL (14.0-18.0); MEAN CORPUSCULAR VOLUME 88.6 fL (80.0-94.0); MEAN PLATELET VOLUME 9.2 fl (7.4-10.4); MONOCYTES % 14.6 % (2.0-8.0); NEUTROPHILS % 62.9 % (40.0-76.0); PLATELET 193 x1000/uL (130-400); RED CELL DISTRIBUTION WIDTH 15.7 % (11.6-14.6)
[2020-05-08 11:47] LABS: CHLORIDE 112 mEq/L (98-107)
[2020-05-08 11:52] LABS: PHOSPHORUS 3.4 mg/dL (2.5-4.9)
[2020-05-08 11:53] LABS: PROTHROMBIN TIME 10.9 sec (9.6-11.0)
[2020-05-08] MEDS ORDERED: SODIUM BICARBONATE 8.4% 1 MEQ/ML 50ML SYR IV ONE (12:15)
[2020-05-08] MEDS ORDERED: DEXTROSE 50% WATER 50ML SYRINGE IV ONE (12:15)
[2020-05-08] MEDS ORDERED: CALCIUM CHLORIDE 1GM/10ML SYR IV ONE (12:15)
[2020-05-08] MEDS ORDERED: ASPIRIN 81MG TABLET PO ONE (12:15)
[2020-05-08] MEDS ORDERED: INSULIN REGULAR (HUMULIN R) 300UNITS/3ML VIAL IV ONE (12:15)
[2020-05-08 12:25] LABS: CLARITY URINE CLEAR (CLEAR); COLOR URINE DARK YELLOW (YELLOW); KETONES URINE TRACE (NEGATIVE); LEUKOCYTE ESTERASE URINE TRACE (NEGATIVE); NITRITE URINE NEGATIVE (NEGATIVE); OCCULT BLOOD URINE NEGATIVE (NEGATIVE); PROTEIN URINE 1+ (NEGATIVE)
[2020-05-08 12:52] LABS: HEPATITIS B SURFACE AB < 3.1 mIU/mL
[2020-05-08] MEDS ORDERED: MAGNESIUM/ALUMINUM HYDROXIDE/SIMETHICONE 30ML UDC PO PRN (13:00)
[2020-05-08] MEDS ORDERED: CLONIDINE 0.1MG TABLET PO PRN (13:00)
[2020-05-08] MEDS ORDERED: GUAIFENESIN 200MG/10ML SUGAR FREE UDC PO PRN (13:00)
[2020-05-08] MEDS ORDERED: DOCUSATE SODIUM 100MG CAPSULE PO PRN (13:00)
[2020-05-08] MEDS ORDERED: MORPHINE SULFATE 2 MG/ML CPJ (NOT FOR IM USE) IV PRN (13:00)
[2020-05-08] MEDS ORDERED: ACETAMINOPHEN 325MG TABLET PO PRN (13:00)
[2020-05-08] MEDS ORDERED: ONDANSETRON HCL 4MG/2ML INJ IV PRN (13:00)
[2020-05-08 13:03] LABS: HEPATITIS B SURFACE ANTIGEN NEGATIVE
[2020-05-08 13:32] LABS: HEPATITIS A AB IGM NEGATIVE (NEGATIVE)
[2020-05-08] MEDS ORDERED: LIDOCAINE HCL 1% 20ML VIAL (Pyxis) INJ ONE (13:36)
[2020-05-08] MEDS ORDERED: HEPARIN 1000 UNITS/ML 10ML ONE (13:37)
[2020-05-08] MEDS ORDERED: CARVEDILOL 6.25 MG TABLET PO SCH (14:00)
[2020-05-08] MEDS: TAMSULOSIN HCL 0.4MG SR CAPSULE PO SCH ×2 (14:00→14:59)
[2020-05-08] MEDS: OMEPRAZOLE 20MG CAPSULE EXTENDED RELEASE PO SCH (14:58)
[2020-05-08] MEDS: DULOXETINE HCL 60MG DR CAPSULE PO SCH (14:59)
[2020-05-08] MEDS: FINASTERIDE 5MG TABLET PO SCH (14:59)
[2020-05-08] MEDS: SUCRALFATE 1G TABLET PO SCH ×3 (15:00→22:21)
[2020-05-08 17:44] VITALS: BP 108/57
[2020-05-08 18:00] VITALS: BP 124/75
[2020-05-08] MEDS ORDERED: DEXTROSE 50% WATER 50ML SYRINGE IV PRN (19:45)
[2020-05-08 20:00] VITALS: BP 108/51
[2020-05-08] MEDS ORDERED: ATORVASTATIN CALCIUM 40MG TABLET PO SCH (21:00)
[2020-05-08] MEDS: INSULIN LISPRO 100 UNITS/ML SUBCUT SCH (21:00)
[2020-05-08] MEDS: BLOOD SUGAR DIAGNOSTIC STRIP TEST SCH (21:22)
[2020-05-08] MEDS: CARVEDILOL 3.125 MG TABLET PO SCH (22:00)
[2020-05-08] MEDS: ATORVASTATIN CALCIUM 40MG TABLET PO SCH (22:21)
[2020-05-08] MEDS: GABAPENTIN 300MG CAPSULE PO SCH (22:21)
[2020-05-09] VITALS: BP 104/47
[2020-05-09 04:00] VITALS: BP 90/47
[2020-05-09] MEDS: INSULIN LISPRO 100 UNITS/ML SUBCUT SCH ×4 (06:21→20:23)
[2020-05-09] MEDS: OMEPRAZOLE 20MG CAPSULE EXTENDED RELEASE PO SCH (06:21)
[2020-05-09] MEDS: BLOOD SUGAR DIAGNOSTIC STRIP TEST SCH ×5 (06:21→20:23)
[2020-05-09 07:13] LABS: BASOPHILS % 0.7 % (0.0-2.0); EOSINOPHILS % 2.5 % (0.0-5.0); HEMATOCRIT. 25.7 % (42.0-52.0); HEMOGLOBIN. 8.4 g/dL (14.0-18.0); LYMPHOCYTES % 20.1 % (20.0-50.0); MEAN CORPUSCULAR HEMOGLOBIN 28.7 pg (28.0-32.0); MEAN CORPUSCULAR VOLUME 87.7 fL (80.0-94.0); MEAN PLATELET VOLUME 9.4 fl (7.4-10.4); MONOCYTES % 13.3 % (2.0-8.0); NEUTROPHILS % 63.4 % (40.0-76.0); PLATELET 181 x1000/uL (130-400); RED BLOOD CELL COUNT 2.94 mill/uL (4.7-6.1); RED CELL DISTRIBUTION WIDTH 15.3 % (11.6-14.6)
[2020-05-09] MEDS ORDERED: PHENYLEPHRINE 100MCG/ML 10ML VIAL (CATH LAB) IV ONE (07:35)
[2020-05-09] MEDS ORDERED: NICARDIPINE 100MCG/ML 10ML VIAL (CATH LAB) IV ONE (07:35)
[2020-05-09] MEDS ORDERED: NITROGLYCERIN 50MCG/ML 10ML VIAL (CATH LAB) IV ONE (07:35)
[2020-05-09] MEDS ORDERED: HEPARIN SODIUM 1,000 UNIT/1ML VIAL IV ONE (07:35)
[2020-05-09 08:00] VITALS: BP 98/44
[2020-05-09] MEDS: ASPIRIN 81MG EC TABLET PO SCH (09:00)
[2020-05-09] MEDS: DULOXETINE HCL 60MG DR CAPSULE PO SCH (09:00)
[2020-05-09] MEDS: FINASTERIDE 5MG TABLET PO SCH (09:00)
[2020-05-09] MEDS: TAMSULOSIN HCL 0.4MG SR CAPSULE PO SCH (09:00)
[2020-05-09] MEDS: CARVEDILOL 3.125 MG TABLET PO SCH (09:00)
[2020-05-09] MEDS: SUCRALFATE 1G TABLET PO SCH ×4 (09:00→20:15)
[2020-05-09 12:00] VITALS: BP 92/45
[2020-05-09] MEDS ORDERED: IODIXANOL 320MG/ML 200ML BOTTLE ONE (14:06)
[2020-05-09] MEDS ORDERED: FENTANYL CITRATE/PF 50MCG/ML 2ML VIAL ONE (14:40)
[2020-05-09] MEDS ORDERED: MIDAZOLAM HCL 2 MG/2 ML VIAL ONE (14:40)
[2020-05-09] MEDS ORDERED: IOHEXOL-300 100 ML BOTTLE ONE (15:06)
[2020-05-09] MEDS ORDERED: FENTANYL CITRATE/PF 50MCG/ML 5ML VIAL ONE (15:50)
[2020-05-09] MEDS ORDERED: MIDAZOLAM HCL 5 MG/5 ML VIAL ONE (15:50)
[2020-05-09] MEDS ORDERED: ASPIRIN 325MG EC TABLET PO ONE (15:57)
[2020-05-09] MEDS ORDERED: CLOPIDOGREL 75MG TABLET ONE (15:57)
[2020-05-09] MEDS ORDERED: ATROPINE SULFATE 1MG/10ML SYR IV PRN (16:00)
[2020-05-09] MEDS ORDERED: ONDANSETRON HCL 4MG/2ML INJ IV PRN (16:00)
[2020-05-09] MEDS ORDERED: ACETAMINOPHEN 325MG TABLET PO PRN (16:00)
[2020-05-09 20:00] VITALS: BP 118/63
[2020-05-09] MEDS: ATORVASTATIN CALCIUM 40MG TABLET PO SCH (20:15)
[2020-05-09] MEDS: GABAPENTIN 300MG CAPSULE PO SCH (20:15)
[2020-05-09] MEDS ORDERED: CARVEDILOL 3.125 MG TABLET PO SCH (21:00)
[2020-05-09 22:00] VITALS: BP 115/58
[2020-05-10] VITALS (13 sets, daily range): BP systolic 99–148; BP diastolic 49–85
[2020-05-10] MEDS: BLOOD SUGAR DIAGNOSTIC STRIP TEST SCH ×4 (05:54→20:38)
[2020-05-10] MEDS: OMEPRAZOLE 20MG CAPSULE EXTENDED RELEASE PO SCH (05:54)
[2020-05-10 06:41] LABS: BASOPHILS % 0.7 % (0.0-2.0); EOSINOPHILS % 3.3 % (0.0-5.0); HEMATOCRIT. 26.5 % (42.0-52.0); HEMOGLOBIN. 8.7 g/dL (14.0-18.0); LYMPHOCYTES % 18.5 % (20.0-50.0); MEAN CORPUSCULAR HEMOGLOBIN 28.9 pg (28.0-32.0); MEAN CORPUSCULAR VOLUME 88.2 fL (80.0-94.0); MEAN PLATELET VOLUME 9.3 fl (7.4-10.4); MONOCYTES % 11.8 % (2.0-8.0); NEUTROPHILS % 65.7 % (40.0-76.0); PLATELET 198 x1000/uL (130-400); RED CELL DISTRIBUTION WIDTH 15.7 % (11.6-14.6)
[2020-05-10] MEDS: INSULIN LISPRO 100 UNITS/ML SUBCUT SCH ×4 (07:20→20:39)
[2020-05-10] MEDS: FINASTERIDE 5MG TABLET PO SCH (08:21)
[2020-05-10] MEDS: DULOXETINE HCL 60MG DR CAPSULE PO SCH (08:21)
[2020-05-10] MEDS: SUCRALFATE 1G TABLET PO SCH ×4 (08:21→20:36)
[2020-05-10] MEDS: ASPIRIN 81MG EC TABLET PO SCH (08:22)
[2020-05-10] MEDS: TAMSULOSIN HCL 0.4MG SR CAPSULE PO SCH (08:22)
[2020-05-10] MEDS ORDERED: CLOPIDOGREL 75MG TABLET PO NR (15:45)
[2020-05-10] MEDS: ATORVASTATIN CALCIUM 40MG TABLET PO SCH (20:35)
[2020-05-10] MEDS: GABAPENTIN 300MG CAPSULE PO SCH (20:36)
[2020-05-11] VITALS (13 sets, daily range): BP systolic 130–178; BP diastolic 68–106
[2020-05-11 05:37] LABS: BASOPHILS % 0.8 % (0.0-2.0); EOSINOPHILS % 2.7 % (0.0-5.0); HEMATOCRIT. 26.8 % (42.0-52.0); HEMOGLOBIN. 8.6 g/dL (14.0-18.0); MEAN CORPUSCULAR HEMOGLOBIN 27.9 pg (28.0-32.0); MEAN CORPUSCULAR VOLUME 86.4 fL (80.0-94.0); MONOCYTES % 12.9 % (2.0-8.0); NEUTROPHILS % 63.6 % (40.0-76.0); PLATELET 192 x1000/uL (130-400); RED CELL DISTRIBUTION WIDTH 15.2 % (11.6-14.6)
[2020-05-11] MEDS: BLOOD SUGAR DIAGNOSTIC STRIP TEST SCH ×4 (05:57→20:34)
[2020-05-11] MEDS: FAMOTIDINE 20MG TABLET PO SCH ×2 (05:57→08:10)
[2020-05-11 06:00] LABS: INR 1.1; PARTIAL THROMBOPLASTIN TIME 29.3 sec (23.4-31.0); PROTHROMBIN TIME 11.5 sec (9.6-11.0)
[2020-05-11] MEDS: INSULIN LISPRO 100 UNITS/ML SUBCUT SCH ×4 (07:20→20:34)
[2020-05-11] MEDS: TAMSULOSIN HCL 0.4MG SR CAPSULE PO SCH (08:10)
[2020-05-11] MEDS: ASPIRIN 81MG EC TABLET PO SCH (08:10)
[2020-05-11] MEDS: DULOXETINE HCL 60MG DR CAPSULE PO SCH (08:10)
[2020-05-11] MEDS: SUCRALFATE 1G TABLET PO SCH ×4 (08:10→20:26)
[2020-05-11] MEDS: FINASTERIDE 5MG TABLET PO SCH (08:10)
[2020-05-11] MEDS: CLOPIDOGREL 75MG TABLET PO SCH (08:11)
[2020-05-11] MEDS ORDERED: CEFAZOLIN 1000MG PREMIX 50 ML IV SCH (12:00)
[2020-05-11] MEDS ORDERED: CEFAZOLIN 1000MG PREMIX 50 ML IV ONE (12:15)
[2020-05-11] MEDS ORDERED: FENTANYL CITRATE/PF 50MCG/ML 2ML VIAL ONE (12:15)
[2020-05-11] MEDS ORDERED: LIDOCAINE HCL 1% 20ML VIAL (Pyxis) INJ ONE (12:31)
[2020-05-11 13:57] LABS: BG DEOXYHEMOGLOBIN 3.4 % (0.0-5.0); BG FRACTION INSPIRED OXYGEN 32; BG METHEMOGLOBIN 0.6 % (0.0-1.5); BG OXYGEN SATURATION 96.6 % (92.0-98.5); BG PCO2 36.6 mmHg (35.0-45.0); BG PH 7.355 (7.350-7.450); BG PO2 93.3 mmHg (75.0-100.0); BG SAMPLE SITE RIGHT RADIAL; BG TOTAL HEMOGLOBIN 10.7 g/dL (12.0-18.0); BG VENT MODE NASAL CANNULA
[2020-05-11] MEDS: ATORVASTATIN CALCIUM 40MG TABLET PO SCH (20:26)
[2020-05-11] MEDS: GABAPENTIN 300MG CAPSULE PO SCH (20:26)
[2020-05-11] MEDS: IPRATROPIUM BROMIDE (0.02%) 0.5MG/2.5ML NEB HHN SCH (21:16)
[2020-05-12] VITALS (12 sets, daily range): BP systolic 127–155; BP diastolic 73–88
[2020-05-12] MEDS: IPRATROPIUM BROMIDE (0.02%) 0.5MG/2.5ML NEB HHN SCH ×4 (02:16→20:54)
[2020-05-12] MEDS: BLOOD SUGAR DIAGNOSTIC STRIP TEST SCH ×4 (05:58→20:40)
[2020-05-12] MEDS: INSULIN LISPRO 100 UNITS/ML SUBCUT SCH ×4 (07:09→20:49)
[2020-05-12 07:10] LABS: BASOPHILS % 1.1 % (0.0-2.0); EOSINOPHILS % 2.4 % (0.0-5.0); HEMATOCRIT. 28.7 % (42.0-52.0); HEMOGLOBIN. 9.2 g/dL (14.0-18.0); LYMPHOCYTES % 17.5 % (20.0-50.0); MEAN CORPUSCULAR VOLUME 86.8 fL (80.0-94.0); MEAN PLATELET VOLUME 9.4 fl (7.4-10.4); MONOCYTES % 13.3 % (2.0-8.0); NEUTROPHILS % 65.7 % (40.0-76.0); PLATELET 192 x1000/uL (130-400); RED CELL DISTRIBUTION WIDTH 15.1 % (11.6-14.6)
[2020-05-12] MEDS: CLOPIDOGREL 75MG TABLET PO SCH (11:11)
[2020-05-12] MEDS: DULOXETINE HCL 60MG DR CAPSULE PO SCH (11:11)
[2020-05-12] MEDS: ASPIRIN 81MG EC TABLET PO SCH (11:11)
[2020-05-12] MEDS: FAMOTIDINE 20MG TABLET PO SCH (11:12)
[2020-05-12] MEDS: FINASTERIDE 5MG TABLET PO SCH (11:12)
[2020-05-12] MEDS: TAMSULOSIN HCL 0.4MG SR CAPSULE PO SCH (11:12)
[2020-05-12] MEDS: SUCRALFATE 1G TABLET PO SCH ×4 (11:12→20:49)
[2020-05-12] MEDS: GABAPENTIN 300MG CAPSULE PO SCH (20:48)
[2020-05-12] MEDS: ATORVASTATIN CALCIUM 40MG TABLET PO SCH (20:49)
[2020-05-13] VITALS (11 sets, daily range): BP systolic 117–151; BP diastolic 73–87
[2020-05-13] MEDS: IPRATROPIUM BROMIDE (0.02%) 0.5MG/2.5ML NEB HHN SCH ×4 (01:06→21:29)
[2020-05-13] MEDS: BLOOD SUGAR DIAGNOSTIC STRIP TEST SCH ×4 (05:53→20:41)
[2020-05-13] MEDS: INSULIN LISPRO 100 UNITS/ML SUBCUT SCH ×4 (07:01→20:56)
[2020-05-13 07:13] LABS: BASOPHILS % 0.5 % (0.0-2.0); HEMATOCRIT. 31.2 % (42.0-52.0); HEMOGLOBIN. 10.3 g/dL (14.0-18.0); LYMPHOCYTES % 21.9 % (20.0-50.0); MEAN CORPUSCULAR HEMOGLOBIN 27.9 pg (28.0-32.0); MEAN CORPUSCULAR VOLUME 84.3 fL (80.0-94.0); MONOCYTES % 14.1 % (2.0-8.0); NEUTROPHILS % 60.5 % (40.0-76.0); PLATELET 221 x1000/uL (130-400); RED CELL DISTRIBUTION WIDTH 14.5 % (11.6-14.6)
[2020-05-13] MEDS: FAMOTIDINE 20MG TABLET PO SCH (08:07)
[2020-05-13] MEDS: CLOPIDOGREL 75MG TABLET PO SCH (08:07)
[2020-05-13] MEDS: TAMSULOSIN HCL 0.4MG SR CAPSULE PO SCH (08:07)
[2020-05-13] MEDS: ASPIRIN 81MG EC TABLET PO SCH (08:07)
[2020-05-13] MEDS: DULOXETINE HCL 60MG DR CAPSULE PO SCH (08:07)
[2020-05-13] MEDS: SUCRALFATE 1G TABLET PO SCH ×4 (08:07→20:41)
[2020-05-13] MEDS: FINASTERIDE 5MG TABLET PO SCH (08:07)
[2020-05-13] MEDS: GABAPENTIN 300MG CAPSULE PO SCH (20:41)
[2020-05-13] MEDS: ATORVASTATIN CALCIUM 40MG TABLET PO SCH (20:41)
[2020-05-14] VITALS (26 sets, daily range): BP systolic 116–148; BP diastolic 71–91
[2020-05-14] MEDS: IPRATROPIUM BROMIDE (0.02%) 0.5MG/2.5ML NEB HHN SCH ×3 (01:41→21:27)
[2020-05-14] MEDS: BLOOD SUGAR DIAGNOSTIC STRIP TEST SCH ×4 (06:00→21:12)
[2020-05-14 07:16] LABS: BASOPHILS % 1.4 % (0.0-2.0); EOSINOPHILS % 4.2 % (0.0-5.0); HEMATOCRIT. 31.6 % (42.0-52.0); HEMOGLOBIN. 10.6 g/dL (14.0-18.0); LYMPHOCYTES % 24.5 % (20.0-50.0); MEAN CORPUSCULAR HEMOGLOBIN 28.1 pg (28.0-32.0); MEAN CORPUSCULAR VOLUME 84.3 fL (80.0-94.0); MEAN PLATELET VOLUME 9.1 fl (7.4-10.4); MONOCYTES % 14.6 % (2.0-8.0); NEUTROPHILS % 55.3 % (40.0-76.0); PLATELET 223 x1000/uL (130-400); RED BLOOD CELL COUNT 3.75 mill/uL (4.7-6.1)
[2020-05-14] MEDS: INSULIN LISPRO 100 UNITS/ML SUBCUT SCH ×4 (07:20→21:00)
[2020-05-14] MEDS: DULOXETINE HCL 60MG DR CAPSULE PO SCH (08:17)
[2020-05-14] MEDS: SUCRALFATE 1G TABLET PO SCH ×4 (08:17→21:12)
[2020-05-14] MEDS: TAMSULOSIN HCL 0.4MG SR CAPSULE PO SCH (08:18)
[2020-05-14] MEDS: FINASTERIDE 5MG TABLET PO SCH (08:18)
[2020-05-14] MEDS: CEFAZOLIN 1000MG PREMIX 50 ML IV SCH (09:25)
[2020-05-14] MEDS ORDERED: CEFAZOLIN 1000MG PREMIX 50 ML IV ONE (09:25)
[2020-05-14] MEDS ORDERED: FENTANYL CITRATE/PF 50MCG/ML 2ML VIAL ONE (09:26)
[2020-05-14] MEDS ORDERED: HEPARIN 1000 UNITS/ML 10ML ONE (09:28)
[2020-05-14] MEDS ORDERED: LIDOCAINE HCL 1% 20ML VIAL (Pyxis) INJ ONE (09:28)
[2020-05-14] MEDS ORDERED: FENTANYL CITRATE/PF 50MCG/ML 2ML VIAL IV ONE (09:45)
[2020-05-14] MEDS: CLOPIDOGREL 75MG TABLET PO SCH (11:36)
[2020-05-14] MEDS: ASPIRIN 81MG EC TABLET PO SCH (11:36)
[2020-05-14] MEDS: GABAPENTIN 300MG CAPSULE PO SCH (21:12)
[2020-05-14] MEDS: CARVEDILOL 3.125 MG TABLET PO SCH (21:12)
[2020-05-14] MEDS: ATORVASTATIN CALCIUM 40MG TABLET PO SCH (21:12)
[2020-05-15] VITALS (7 sets, daily range): BP systolic 110–133; BP diastolic 67–78
[2020-05-15] MEDS: IPRATROPIUM BROMIDE (0.02%) 0.5MG/2.5ML NEB HHN SCH ×2 (01:35→09:58)
[2020-05-15 06:19] LABS: BASOPHILS % 0.7 % (0.0-2.0); EOSINOPHILS % 2.9 % (0.0-5.0); HEMATOCRIT. 34.7 % (42.0-52.0); HEMOGLOBIN. 11.5 g/dL (14.0-18.0); LYMPHOCYTES % 19.9 % (20.0-50.0); MEAN CORPUSCULAR HEMOGLOBIN 28.1 pg (28.0-32.0); MEAN CORPUSCULAR VOLUME 84.6 fL (80.0-94.0); MONOCYTES % 13.5 % (2.0-8.0); PLATELET 236 x1000/uL (130-400); RED CELL DISTRIBUTION WIDTH 14.9 % (11.6-14.6)
[2020-05-15] MEDS: FAMOTIDINE 20MG TABLET PO SCH (06:19)
[2020-05-15] MEDS: BLOOD SUGAR DIAGNOSTIC STRIP TEST SCH ×2 (06:19→11:50)
[2020-05-15] MEDS: INSULIN LISPRO 100 UNITS/ML SUBCUT SCH ×2 (06:34→12:04)
[2020-05-15] MEDS: FINASTERIDE 5MG TABLET PO SCH (08:31)
[2020-05-15] MEDS: ASPIRIN 81MG EC TABLET PO SCH (08:31)
[2020-05-15] MEDS: SUCRALFATE 1G TABLET PO SCH (08:31)
[2020-05-15] MEDS: DULOXETINE HCL 60MG DR CAPSULE PO SCH (08:31)
[2020-05-15] MEDS: TAMSULOSIN HCL 0.4MG SR CAPSULE PO SCH (08:32)
[2020-05-15] MEDS: CLOPIDOGREL 75MG TABLET PO SCH (08:35)
[2020-05-15] MEDS: CARVEDILOL 3.125 MG TABLET PO SCH (09:01)
== END 2020-05-15 12:26 | disposition home health service (06) | DRG 246 ==
LOC: ER 11:03 → 5WST 12:11 → EDBEDREQSVC 12:19 → EDBEDREQ 12:19 → EDBEDREQSVC 13:33 → ENRESERV 15:26 → 3WST 05-09 15:57
PROVIDERS: ADMIT Hospitalist; ATTEND Hospitalist
PROC: 5A1D70Z Performance of Urinary Filtration, Intermittent, Less than 6 Hours Per Day (ICD-10-PCS; 2020-05-08)
PROC: 02HV33Z Insertion of Infusion Device into Superior Vena Cava, Percutaneous Approach (ICD-10-PCS; 2020-05-08)
PROC: B548ZZA Ultrasonography of Superior Vena Cava, Guidance (ICD-10-PCS; 2020-05-08)
PROC: 027135Z Dilation of Coronary Artery, Two Arteries with Two Drug-eluting Intraluminal Devices, Percutaneous Approach (ICD-10-PCS; principal; 2020-05-09)
PROC: 4A023N7 Measurement of Cardiac Sampling and Pressure, Left Heart, Percutaneous Approach (ICD-10-PCS; 2020-05-09)
PROC: B211YZZ Fluoroscopy of Multiple Coronary Arteries using Other Contrast (ICD-10-PCS; 2020-05-09)
PROC: 5A1D70Z Performance of Urinary Filtration, Intermittent, Less than 6 Hours Per Day (ICD-10-PCS; 2020-05-09)
PROC: 5A1D70Z Performance of Urinary Filtration, Intermittent, Less than 6 Hours Per Day (ICD-10-PCS; 2020-05-10)
PROC: 5A1D70Z Performance of Urinary Filtration, Intermittent, Less than 6 Hours Per Day (ICD-10-PCS; 2020-05-11)
PROC: 0JH63XZ Insertion of Tunneled Vascular Access Device into Chest Subcutaneous Tissue and Fascia, Percutaneous Approach (ICD-10-PCS; 2020-05-14)
PROC: 5A1D70Z Performance of Urinary Filtration, Intermittent, Less than 6 Hours Per Day (ICD-10-PCS; 2020-05-14)
PROC: 02PYX3Z Removal of Infusion Device from Great Vessel, External Approach (ICD-10-PCS; 2020-05-14)
PROC: 02HV33Z Insertion of Infusion Device into Superior Vena Cava, Percutaneous Approach (ICD-10-PCS; 2020-05-14)
PROC: B518ZZA Fluoroscopy of Superior Vena Cava, Guidance (ICD-10-PCS; 2020-05-14)
PROC: B548ZZA Ultrasonography of Superior Vena Cava, Guidance (ICD-10-PCS; 2020-05-14)
DX: I22.2 Subsequent non-ST elevation (NSTEMI) myocardial infarction (principal); K85.90 Acute pancreatitis without necrosis or infection, unspecified; I50.43 Acute on chronic combined systolic (congestive) and diastolic (congestive) heart failure; J96.01 Acute respiratory failure with hypoxia; N17.9 Acute kidney failure, unspecified; E87.2 Acidosis; I13.0 Hypertensive heart and chronic kidney disease with heart failure and stage 1 through stage 4 chronic kidney disease, or unspecified chronic kidney disease; I21.4 Non-ST elevation (NSTEMI) myocardial infarction; D63.1 Anemia in chronic kidney disease; E11.22 Type 2 diabetes mellitus with diabetic chronic kidney disease; E11.51 Type 2 diabetes mellitus with diabetic peripheral angiopathy without gangrene; E78.5 Hyperlipidemia, unspecified; E87.5 Hyperkalemia; I25.10 Atherosclerotic heart disease of native coronary artery without angina pectoris; Z20.822 Contact with and (suspected) exposure to COVID-19; I25.5 Ischemic cardiomyopathy; I34.0 Nonrheumatic mitral (valve) insufficiency; R55 Syncope and collapse; I95.9 Hypotension, unspecified; I44.7 Left bundle-branch block, unspecified; N18.9 Chronic kidney disease, unspecified; N40.0 Benign prostatic hyperplasia without lower urinary tract symptoms; Z89.512 Acquired absence of left leg below knee; Z86.718 Personal history of other venous thrombosis and embolism; Z79.82 Long term (current) use of aspirin; Z79.899 Other long term (current) drug therapy; Z87.891 Personal history of nicotine dependence; Z95.1 Presence of aortocoronary bypass graft
CPT/HCPCS: 36415; 36556; 36558; 36589; 36600; 71045; 76937; 77001; 78580; 80048; 80053; 81003; 82375; 82805; 82962; 83036; 83735; 84100; 84484; 85025; 85347; 85379; 86705; 86706; 86709; 86803; 87340; 87426; 92928; 92929; 93005; 93458; 94640; 99152; 99153; 99291; C1750; C1752; C1769; C1874; C1887; C1893; J0690; J1642; J1644; J1815; J2250; J2370; J3010; J3490; J7040; L8514; Q9967; G0500

== ENCOUNTER 2022-03-30 13:43 | Inpatient (IN) | payer MEDICARE, BC ==
[~2022-03-30] VITALS: Ht 175.3 cm; Wt 82.3 kg
[~2022-03-30 13:43] MED LIST changes: -COR6 PO; -OMEP40CA12 MT; +OMEP40CA20 MT; +POTA-194 PO; -POTA20TA12 PO
[2022-03-30] MEDS ORDERED: SODIUM CHLORIDE 0.9% 1,000 ML IV ONE (14:30)
[2022-03-30 18:16] LABS: BASOPHILS % 0.4 % (0.0-2.0); EOSINOPHILS % 0.1 % (0.0-5.0); LYMPHOCYTES % 14.5 % (20.0-50.0); MEAN CORPUSCULAR HEMOGLOBIN 28.5 pg (28.0-32.0); MEAN CORPUSCULAR VOLUME 87.9 fL (80.0-94.0); MEAN PLATELET VOLUME 9.3 fl (7.4-10.4); MONOCYTES % 8.3 % (2.0-8.0); NEUTROPHILS % 76.7 % (40.0-76.0); PLATELET 178 x1000/uL (130-400); RED BLOOD CELL COUNT 1.55 mill/uL (4.7-6.1); RED CELL DISTRIBUTION WIDTH 17.2 % (11.6-14.6)
[2022-03-30 18:18] LABS: CHLORIDE 108 mEq/L (98-107)
[2022-03-30 18:37] LABS: HEMOGLOBIN. 4.4 g/dL (14.0-18.0)
[2022-03-30 18:38] LABS: HEMATOCRIT. 13.6 % (42.0-52.0)
[2022-03-30] MEDS ORDERED: HYDROCODONE/ACETAMINOPHEN 10/325MG TABLET PO PRN (21:45)
[2022-03-30] MEDS ORDERED: ACETAMINOPHEN 325MG TABLET PO PRN ×2 (21:45)
[2022-03-30] MEDS ORDERED: IPRATROPIUM/ALBUTEROL 0.5-3(2.5)MG/3ML NEB HHN PRN (21:45)
[2022-03-30] MEDS ORDERED: ONDANSETRON HCL 4MG/2ML INJ IV PRN (21:45)
[2022-03-30] MEDS ORDERED: MAGNESIUM/ALUMINUM HYDROXIDE/SIMETHICONE 30ML UDC PO PRN (21:45)
[2022-03-30] MEDS ORDERED: LORAZEPAM 2MG/ML CPJ IV PRN (21:45)
[2022-03-30] MEDS ORDERED: CLONIDINE 0.1MG TABLET PO PRN (21:45)
[2022-03-31] VITALS (10 sets, daily range): BP systolic 100–131; BP diastolic 43–80
[2022-03-31] MEDS ORDERED: DEXTROSE 50% WATER 50ML SYRINGE IV PRN (00:15)
[2022-03-31] MEDS ORDERED: POTASSIUM CHLORIDE INJ 30 MEQ in DEXT 5%/0.9% NACL 1,000 ML IV ONE (00:45)
[2022-03-31] MEDS: PANTOPRAZOLE SODIUM 40 MG/VIAL IV SCH ×2 (01:06→10:15)
[2022-03-31 04:43] LABS: HEMATOCRIT 16.8 % (42.0-52.0); HEMOGLOBIN 5.5 g/dL (14.0-18.0)
[2022-03-31 04:45] LABS: INR 1.1; PARTIAL THROMBOPLASTIN TIME 23.4 sec (23.4-31.0); PROTHROMBIN TIME 11.5 sec (9.6-11.0)
[2022-03-31 05:11] LABS: T4 FREE 1.23 ng/dL (0.76-1.46)
[2022-03-31] MEDS: INSULIN LISPRO 100 UNITS/ML SUBCUT SCH ×3 (08:20→21:00)
[2022-03-31] MEDS ORDERED: CARVEDILOL 6.25 MG TABLET PO NR (09:00)
[2022-03-31] MEDS: TAMSULOSIN HCL 0.4MG SR CAPSULE PO SCH (09:00)
[2022-03-31] MEDS: BLOOD SUGAR DIAGNOSTIC STRIP TEST SCH ×3 (09:03→21:00)
[2022-03-31] MEDS: ALLOPURINOL 100 MG TABLET PO SCH (10:16)
[2022-03-31] MEDS ORDERED: BUDESONIDE 0.5MG/2ML NEB HHN SCH (11:45)
[2022-03-31 13:51] LABS: TOTAL IRON BINDING CAPACITY 184 ug/dL (250-450)
[2022-03-31 15:55] LABS: INR 1.1; PROTHROMBIN TIME 11.4 sec (9.6-11.0)
[2022-03-31 16:14] LABS: VITAMIN B12 SERUM 592 pg/mL (211-911)
[2022-03-31 16:41] LABS: FERRITIN 381 ng/mL (22-322)
[2022-03-31] MEDS: SUCRALFATE 1 G/10 ML UDC PO SCH (21:00)
[2022-04-01] VITALS (20 sets, daily range): BP systolic 70–131; BP diastolic 31–80
[2022-04-01] MEDS ORDERED: DEXT 5%/0.9% NACL 1,000 ML IV ONE (00:01)
[2022-04-01 01:35] LABS: HEMATOCRIT 18.2 % (42.0-52.0); HEMOGLOBIN 5.9 g/dL (14.0-18.0)
[2022-04-01] MEDS: MIDODRINE HCL 5MG TABLET PO SCH ×3 (07:16→18:45)
[2022-04-01] MEDS: BLOOD SUGAR DIAGNOSTIC STRIP TEST SCH ×4 (07:30→21:17)
[2022-04-01] MEDS: INSULIN LISPRO 100 UNITS/ML SUBCUT SCH ×4 (08:00→21:00)
[2022-04-01 08:43] LABS: HEPATITIS B SURFACE ANTIGEN NEGATIVE
[2022-04-01] MEDS: CARVEDILOL 3.125 MG TABLET PO SCH ×2 (09:00→17:00)
[2022-04-01 09:05] LABS: BASOPHILS % 0.3 % (0.0-2.0); EOSINOPHILS % 0.8 % (0.0-5.0); HEMATOCRIT. 22.5 % (42.0-52.0); HEMOGLOBIN. 7.3 g/dL (14.0-18.0); LYMPHOCYTES % 9.1 % (20.0-50.0); MEAN CORPUSCULAR HEMOGLOBIN 29.4 pg (28.0-32.0); MEAN CORPUSCULAR VOLUME 90.4 fL (80.0-94.0); MONOCYTES % 7.8 % (2.0-8.0); PLATELET 119 x1000/uL (130-400); RED BLOOD CELL COUNT 2.49 mill/uL (4.7-6.1); RED CELL DISTRIBUTION WIDTH 16.1 % (11.6-14.6)
[2022-04-01] MEDS: PANTOPRAZOLE SODIUM 40 MG/VIAL IV SCH ×2 (10:15→18:44)
[2022-04-01] MEDS: FERROUS SULFATE 325MG TABLET PO SCH ×2 (10:16→18:44)
[2022-04-01] MEDS: SUCRALFATE 1 G/10 ML UDC PO SCH ×4 (10:17→21:17)
[2022-04-01] MEDS: ASCORBIC ACID 500 MG TABLET PO SCH ×2 (10:17→18:44)
[2022-04-01] MEDS: TAMSULOSIN HCL 0.4MG SR CAPSULE PO SCH (10:18)
[2022-04-01] MEDS: ALLOPURINOL 100 MG TABLET PO SCH (10:18)
[2022-04-01] MEDS ORDERED: SODIUM CHLORIDE 0.9% 1,000 ML IV SCH (11:30)
[2022-04-01] MEDS ORDERED: ONDANSETRON HCL 4MG/2ML INJ IV PRN (11:30)
[2022-04-01] MEDS ORDERED: PROPOFOL 200MG/20ML VIAL IV ONE (11:38)
[2022-04-01 16:17] LABS: HEMATOCRIT 23.3 % (42.0-52.0); HEMOGLOBIN 7.6 g/dL (14.0-18.0)
[2022-04-01] MEDS ORDERED: IPRATROPIUM BROMIDE (0.02%) 0.5MG/2.5ML NEB HHN PRN (19:45)
[2022-04-01] MEDS ORDERED: ALBUTEROL (0.083%) 2.5MG/3ML NEB HHN PRN (19:45)
[2022-04-02] VITALS (10 sets, daily range): BP systolic 109–139; BP diastolic 36–85
[2022-04-02] MEDS: BLOOD SUGAR DIAGNOSTIC STRIP TEST SCH ×2 (07:30→12:45)
[2022-04-02] MEDS: INSULIN LISPRO 100 UNITS/ML SUBCUT SCH ×2 (08:00→12:45)
[2022-04-02] MEDS: ASCORBIC ACID 500 MG TABLET PO SCH (08:38)
[2022-04-02] MEDS: FERROUS SULFATE 325MG TABLET PO SCH (08:38)
[2022-04-02] MEDS: ALLOPURINOL 100 MG TABLET PO SCH (08:38)
[2022-04-02] MEDS: SUCRALFATE 1 G/10 ML UDC PO SCH ×2 (08:38→13:08)
[2022-04-02] MEDS: PANTOPRAZOLE SODIUM 40 MG/VIAL IV SCH (08:39)
[2022-04-02] MEDS: CARVEDILOL 3.125 MG TABLET PO SCH (08:40)
[2022-04-02] MEDS: MIDODRINE HCL 5MG TABLET PO SCH ×2 (08:40→13:10)
[2022-04-02] MEDS: TAMSULOSIN HCL 0.4MG SR CAPSULE PO SCH (08:40)
[2022-04-02 10:05] LABS: BASOPHILS % 0.4 % (0.0-2.0); EOSINOPHILS % 1.1 % (0.0-5.0); HEMATOCRIT. 22.5 % (42.0-52.0); HEMOGLOBIN. 7.4 g/dL (14.0-18.0); LYMPHOCYTES % 12.3 % (20.0-50.0); MEAN CORPUSCULAR HEMOGLOBIN 30.3 pg (28.0-32.0); MEAN CORPUSCULAR VOLUME 92.5 fL (80.0-94.0); MONOCYTES % 10.6 % (2.0-8.0); NEUTROPHILS % 75.6 % (40.0-76.0); PLATELET 138 x1000/uL (130-400); RED BLOOD CELL COUNT 2.43 mill/uL (4.7-6.1); RED CELL DISTRIBUTION WIDTH 16.4 % (11.6-14.6)
[2022-04-02] MEDS ORDERED: MIDO5TAB4 PO (16:10)
[2022-04-02] MEDS ORDERED: MIDO5TAB4 MT (16:14)
[2022-04-02 17:04] LABS: CARCINO EMBRYONIC ANTIGEN 0.8 ng/ml; PROSTRATE SPECIFIC AG TOTAL 1.27 ng/mL (0.0-4.0)
== END 2022-04-02 16:55 | disposition home or self-care (01) | DRG 377 ==
LOC: ER 13:43 → 5EST 03-31 19:07
PROVIDERS: ADMIT Hospitalist; ATTEND Hospitalist
PROC: 30233N1 Transfusion of Nonautologous Red Blood Cells into Peripheral Vein, Percutaneous Approach (ICD-10-PCS; principal; 2022-03-31)
PROC: 02HV33Z Insertion of Infusion Device into Superior Vena Cava, Percutaneous Approach (ICD-10-PCS; 2022-03-31)
PROC: B548ZZA Ultrasonography of Superior Vena Cava, Guidance (ICD-10-PCS; 2022-03-31)
PROC: 5A1D70Z Performance of Urinary Filtration, Intermittent, Less than 6 Hours Per Day (ICD-10-PCS; 2022-03-31)
PROC: 0DB78ZX Excision of Stomach, Pylorus, Via Natural or Artificial Opening Endoscopic, Diagnostic (ICD-10-PCS; 2022-04-01)
DX: K29.71 Gastritis, unspecified, with bleeding (principal); I21.4 Non-ST elevation (NSTEMI) myocardial infarction; I50.43 Acute on chronic combined systolic (congestive) and diastolic (congestive) heart failure; J96.01 Acute respiratory failure with hypoxia; N18.6 End stage renal disease; D62 Acute posthemorrhagic anemia; I13.2 Hypertensive heart and chronic kidney disease with heart failure and with stage 5 chronic kidney disease, or end stage renal disease; E44.0 Moderate protein-calorie malnutrition; N17.9 Acute kidney failure, unspecified; K57.91 Diverticulosis of intestine, part unspecified, without perforation or abscess with bleeding; E11.22 Type 2 diabetes mellitus with diabetic chronic kidney disease; J44.9 Chronic obstructive pulmonary disease, unspecified; M10.9 Gout, unspecified; N40.0 Benign prostatic hyperplasia without lower urinary tract symptoms; I25.10 Atherosclerotic heart disease of native coronary artery without angina pectoris; E11.51 Type 2 diabetes mellitus with diabetic peripheral angiopathy without gangrene; I44.7 Left bundle-branch block, unspecified; E78.00 Pure hypercholesterolemia, unspecified; E87.8 Other disorders of electrolyte and fluid balance, not elsewhere classified; I25.5 Ischemic cardiomyopathy; K43.9 Ventral hernia without obstruction or gangrene; K57.90 Diverticulosis of intestine, part unspecified, without perforation or abscess without bleeding; Z99.2 Dependence on renal dialysis; Z79.4 Long term (current) use of insulin; I25.2 Old myocardial infarction; Z89.512 Acquired absence of left leg below knee; Z95.5 Presence of coronary angioplasty implant and graft; Z79.02 Long term (current) use of antithrombotics/antiplatelets; Z79.82 Long term (current) use of aspirin; Z79.899 Other long term (current) drug therapy; Z95.1 Presence of aortocoronary bypass graft
CPT/HCPCS: 36415; 36573; 71045; 74176; 80048; 80053; 80061; 82378; 82607; 82728; 82746; 82962; 83036; 83540; 83550; 83880; 84153; 84439; 84443; 84484; 85014; 85018; 85025; 85044; 86705; 86709; 86803; 86850; 86900; 86920; 87340; 87426; 88305; 90935; 93005; 94640; 99291; C1725; C1760; C9113; J2704; J3480; J7030; J7042; J7626; P9016; G0103

== ENCOUNTER 2022-04-15 08:56 | Inpatient (IN) | payer MEDICARE, BC ==
[~2022-04-15] VITALS: Ht 176.5 cm; Wt 81.2 kg
[~2022-04-15 08:56] MED LIST changes: -ASPI-1497 PO
[2022-04-15] MEDS ORDERED: IPRATROPIUM BROMIDE (0.02%) 0.5MG/2.5ML NEB HHN STA ×2 (10:29→14:51)
[2022-04-15] MEDS ORDERED: ALBUTEROL (0.083%) 2.5MG/3ML NEB HHN STA ×2 (10:29→14:51)
[2022-04-15 14:14] LABS: BASOPHILS % 0.3 % (0.0-2.0); EOSINOPHILS % 0.4 % (0.0-5.0); HEMATOCRIT. 29.6 % (42.0-52.0); HEMOGLOBIN. 9.5 g/dL (14.0-18.0); LYMPHOCYTES % 9.6 % (20.0-50.0); MEAN CORPUSCULAR HEMOGLOBIN 29.2 pg (28.0-32.0); MEAN CORPUSCULAR VOLUME 90.7 fL (80.0-94.0); MEAN PLATELET VOLUME 8.4 fl (7.4-10.4); NEUTROPHILS % 81.7 % (40.0-76.0); PLATELET 323 x1000/uL (130-400); RED BLOOD CELL COUNT 3.26 mill/uL (4.7-6.1); RED CELL DISTRIBUTION WIDTH 18.2 % (11.6-14.6)
[2022-04-15 14:25] LABS: CHLORIDE 106 mEq/L (98-107)
[2022-04-15 15:24] LABS: HEPATITIS B SURFACE ANTIGEN NEGATIVE
[2022-04-15 18:18] VITALS: BP 162/55
[2022-04-15 20:00] VITALS: BP 166/68
[2022-04-15] MEDS: ATORVASTATIN CALCIUM 40MG TABLET PO SCH (20:08)
[2022-04-15] MEDS: FAMOTIDINE 20MG TABLET PO SCH (20:08)
[2022-04-15] MEDS: CARVEDILOL 3.125 MG TABLET PO SCH (20:09)
[2022-04-15] MEDS ORDERED: CARV3.1242 PO (21:47)
[2022-04-15] MEDS ORDERED: FAMO20TA8 PO (21:47)
[2022-04-15] MEDS ORDERED: SACU1TAB4 MT (21:47)
[2022-04-15] MEDS ORDERED: GUAIFENESIN 200MG/10ML SUGAR FREE UDC PO PRN (22:15)
[2022-04-15] MEDS ORDERED: TRAMADOL 50MG TABLET PO PRN (22:15)
[2022-04-15] MEDS ORDERED: DOCUSATE SODIUM 100MG CAPSULE PO PRN (22:15)
[2022-04-15] MEDS ORDERED: ONDANSETRON HCL 4MG/2ML INJ IV PRN (22:15)
[2022-04-15] MEDS ORDERED: ACETAMINOPHEN 325MG TABLET PO PRN (22:15)
[2022-04-15] MEDS ORDERED: MAGNESIUM/ALUMINUM HYDROXIDE/SIMETHICONE 30ML UDC PO PRN (22:15)
[2022-04-16] VITALS (15 sets, daily range): BP systolic 109–146; BP diastolic 58–81
[2022-04-16] MEDS ORDERED: DEXTROSE 50% WATER 50ML SYRINGE IV PRN (06:00)
[2022-04-16] MEDS: INSULIN LISPRO 100 UNITS/ML SUBCUT SCH ×4 (06:00→21:00)
[2022-04-16] MEDS: BLOOD SUGAR DIAGNOSTIC STRIP TEST SCH ×4 (06:14→20:54)
[2022-04-16 06:31] LABS: BASOPHILS % 0.6 % (0.0-2.0); EOSINOPHILS % 1.6 % (0.0-5.0); HEMATOCRIT. 22.9 % (42.0-52.0); HEMOGLOBIN. 7.5 g/dL (14.0-18.0); LYMPHOCYTES % 12.3 % (20.0-50.0); MEAN CORPUSCULAR HEMOGLOBIN 29.6 pg (28.0-32.0); MEAN CORPUSCULAR VOLUME 90.7 fL (80.0-94.0); MEAN PLATELET VOLUME 8.3 fl (7.4-10.4); MONOCYTES % 9.7 % (2.0-8.0); NEUTROPHILS % 75.8 % (40.0-76.0); PLATELET 249 x1000/uL (130-400); RED BLOOD CELL COUNT 2.52 mill/uL (4.7-6.1); RED CELL DISTRIBUTION WIDTH 17.8 % (11.6-14.6)
[2022-04-16] MEDS ORDERED: IPRATROPIUM/ALBUTEROL 0.5-3(2.5)MG/3ML NEB HHN STA (07:55)
[2022-04-16] MEDS ORDERED: ALBUTEROL (0.083%) 2.5MG/3ML NEB HHN NR (08:15)
[2022-04-16] MEDS ORDERED: IPRATROPIUM BROMIDE (0.02%) 0.5MG/2.5ML NEB HHN NR (08:15)
[2022-04-16 08:51] LABS: CHLORIDE 110 mEq/L (98-107)
[2022-04-16] MEDS ORDERED: ASPIRIN 81MG EC TABLET PO SCH (09:00)
[2022-04-16] MEDS: CARVEDILOL 3.125 MG TABLET PO SCH ×2 (09:00→16:36)
[2022-04-16 09:07] LABS: HDL CHOLESTEROL 46 mg/dL (40-59); LDL CHOLESTEROL 54 mg/dL (5-100)
[2022-04-16] MEDS ORDERED: IPRATROPIUM/ALBUTEROL 0.5-3(2.5)MG/3ML NEB HHN PRN (09:30)
[2022-04-16] MEDS ORDERED: ALBUTEROL (0.083%) 2.5MG/3ML NEB HHN PRN (09:45)
[2022-04-16] MEDS ORDERED: IPRATROPIUM BROMIDE (0.02%) 0.5MG/2.5ML NEB HHN PRN (09:45)
[2022-04-16] MEDS: FINASTERIDE 5MG TABLET PO SCH (09:46)
[2022-04-16] MEDS: TAMSULOSIN HCL 0.4MG SR CAPSULE PO SCH (09:46)
[2022-04-16] MEDS: ALLOPURINOL 100 MG TABLET PO SCH (09:46)
[2022-04-16] MEDS: DULOXETINE HCL 60MG DR CAPSULE PO SCH (09:46)
[2022-04-16] MEDS: METHYLPREDNISOLONE SOD SUCC 40 MG/ML VIAL IV SCH (11:51)
[2022-04-16] MEDS: PANTOPRAZOLE 40MG DR TABLET PO SCH (11:51)
[2022-04-16] MEDS: SUCRALFATE 1 G/10 ML UDC PO SCH ×3 (11:51→20:53)
[2022-04-16] MEDS ORDERED: IPRATROPIUM/ALBUTEROL 0.5-3(2.5)MG/3ML NEB HHN SCH (12:00)
[2022-04-16 16:53] LABS: TOTAL IRON BINDING CAPACITY 205 ug/dL (250-450)
[2022-04-16] MEDS: IPRATROPIUM BROMIDE (0.02%) 0.5MG/2.5ML NEB HHN SCH ×2 (17:10→21:09)
[2022-04-16] MEDS: ALBUTEROL (0.083%) 2.5MG/3ML NEB HHN SCH ×2 (17:10→21:09)
[2022-04-16] MEDS ORDERED: NALOXONE HCL 0.4MG/ML VIAL IV PRN (18:45)
[2022-04-16 19:43] LABS: FOLIC ACID (FOLATE) SERUM 12.1 ng/mL (>5.38)
[2022-04-16] MEDS: ATORVASTATIN CALCIUM 40MG TABLET PO SCH (20:53)
[2022-04-16] MEDS: FAMOTIDINE 20MG TABLET PO SCH (20:54)
[2022-04-16] MEDS ORDERED: EPOETIN ALFA-EPBX 4,000 UNIT/ML VIAL SUBCUT SCH (21:00)
[2022-04-16] MEDS ORDERED: GABAPENTIN 300MG CAPSULE PO SCH (21:00)
[2022-04-17 00:05] VITALS: BP 130/54
[2022-04-17] MEDS: ALBUTEROL (0.083%) 2.5MG/3ML NEB HHN SCH ×3 (01:09→13:22)
[2022-04-17] MEDS: IPRATROPIUM BROMIDE (0.02%) 0.5MG/2.5ML NEB HHN SCH ×3 (01:09→13:22)
[2022-04-17 04:00] VITALS: BP 134/61
[2022-04-17] MEDS: BLOOD SUGAR DIAGNOSTIC STRIP TEST SCH ×3 (05:20→17:10)
[2022-04-17] MEDS: INSULIN LISPRO 100 UNITS/ML SUBCUT SCH ×3 (05:21→17:10)
[2022-04-17] MEDS: TAMSULOSIN HCL 0.4MG SR CAPSULE PO SCH (08:14)
[2022-04-17] MEDS: DULOXETINE HCL 60MG DR CAPSULE PO SCH (08:14)
[2022-04-17] MEDS: SUCRALFATE 1 G/10 ML UDC PO SCH ×3 (08:14→16:32)
[2022-04-17] MEDS: METHYLPREDNISOLONE SOD SUCC 40 MG/ML VIAL IV SCH (08:15)
[2022-04-17] MEDS: ALLOPURINOL 100 MG TABLET PO SCH (08:15)
[2022-04-17] MEDS: PANTOPRAZOLE 40MG DR TABLET PO SCH (08:15)
[2022-04-17] MEDS: FINASTERIDE 5MG TABLET PO SCH (08:15)
[2022-04-17] MEDS: CARVEDILOL 3.125 MG TABLET PO SCH ×2 (08:15→16:33)
[2022-04-17 11:45] VITALS: BP 133/52
[2022-04-17 12:00] VITALS: BP 133/52
[2022-04-17 13:18] LABS: HEMATOCRIT. 25.4 % (42.0-52.0); HEMOGLOBIN. 8.2 g/dL (14.0-18.0); MEAN CORPUSCULAR HEMOGLOBIN 29.2 pg (28.0-32.0); MEAN CORPUSCULAR VOLUME 90.6 fL (80.0-94.0); MEAN PLATELET VOLUME 8.6 fl (7.4-10.4); PLATELET 244 x1000/uL (130-400)
[2022-04-17 13:56] LABS: PLATELET ESTIMATE NORMAL
[2022-04-17 16:00] VITALS: BP 139/65
== END 2022-04-17 18:20 | disposition home or self-care (01) | DRG 291 ==
LOC: ER 09:16 → EDBEDREQ 13:09 → 7WST 19:06
PROVIDERS: ADMIT Hospitalist; ATTEND Hospitalist
PROC: 5A1D70Z Performance of Urinary Filtration, Intermittent, Less than 6 Hours Per Day (ICD-10-PCS; principal; 2022-04-16)
DX: I13.2 Hypertensive heart and chronic kidney disease with heart failure and with stage 5 chronic kidney disease, or end stage renal disease (principal); I50.33 Acute on chronic diastolic (congestive) heart failure; N18.6 End stage renal disease; J44.1 Chronic obstructive pulmonary disease with (acute) exacerbation; K92.2 Gastrointestinal hemorrhage, unspecified; E44.1 Mild protein-calorie malnutrition; R17 Unspecified jaundice; E11.51 Type 2 diabetes mellitus with diabetic peripheral angiopathy without gangrene; E11.22 Type 2 diabetes mellitus with diabetic chronic kidney disease; M10.9 Gout, unspecified; N40.0 Benign prostatic hyperplasia without lower urinary tract symptoms; I25.5 Ischemic cardiomyopathy; I25.10 Atherosclerotic heart disease of native coronary artery without angina pectoris; E78.00 Pure hypercholesterolemia, unspecified; E78.5 Hyperlipidemia, unspecified; E88.09 Other disorders of plasma-protein metabolism, not elsewhere classified; Z20.822 Contact with and (suspected) exposure to COVID-19; I44.7 Left bundle-branch block, unspecified; Z95.5 Presence of coronary angioplasty implant and graft; Z95.1 Presence of aortocoronary bypass graft; Z89.512 Acquired absence of left leg below knee; Z79.899 Other long term (current) drug therapy; Z79.4 Long term (current) use of insulin; Z99.2 Dependence on renal dialysis; Z79.82 Long term (current) use of aspirin; Z88.8 Allergy status to other drugs, medicaments and biological substances; Z68.26 Body mass index [BMI] 26.0-26.9, adult
CPT/HCPCS: 36415; 71045; 80053; 80061; 82270; 82607; 82728; 82746; 82962; 83036; 83540; 83550; 83880; 84484; 85025; 85044; 86705; 86709; 86803; 86850; 86900; 87340; 87426; 90935; 93005; 93306; 94640; 99285; C9803; J0885; J1815; J2920

== ENCOUNTER 2023-07-25 06:20 | Inpatient (IN) | payer MEDICARE, BC ==
[~2023-07-25] VITALS: Ht 175.3 cm; Wt 80.8 kg
[~2023-07-25 06:20] MED LIST changes: +CARV3.1242 PO; +FAMO20TA8 PO; +SACU1TAB4 MT
[2023-07-25 07:59] LABS: HEMATOCRIT. 35.4 % (42.0-52.0); HEMOGLOBIN. 11.5 g/dL (14.0-18.0); MEAN CORPUSCULAR HEMOGLOBIN 28.7 pg (28.0-32.0); MEAN CORPUSCULAR HGB CONC 32.4 g/dL (31.0-37.0); MEAN CORPUSCULAR VOLUME 88.4 fL (80.0-94.0); MEAN PLATELET VOLUME 8.9 fl (7.4-10.4); PLATELET 248 x1000/uL (130-400); RED BLOOD CELL COUNT 4.01 mill/uL (4.7-6.1); RED CELL DISTRIBUTION WIDTH 16.3 % (11.6-14.6); WHITE BLOOD COUNT 11.5 x1000/uL (4.5-11.0)
[2023-07-25 08:04] LABS: CHLORIDE 93 mEq/L (98-107); POTASSIUM 3.7 mEq/L (3.5-5.1); SODIUM 133 mEq/L (136-145)
[2023-07-25 08:05] LABS: CALCIUM 9.2 mg/dL (8.7-10.4); CARBON DIOXIDE 28 mEq/L (21-32)
[2023-07-25 08:10] LABS: GLUCOSE 152 mg/dL (70-105); UREA NITROGEN BLOOD 28 mg/dL (9-23)
[2023-07-25 08:12] LABS: ALANINE AMINOTRANSFERASE 101 IU/L (10-49); ALBUMIN 3.6 g/dL (3.2-4.8); ASPARTATE AMINOTRANSFERASE 130 IU/L (<34); BILIRUBIN DIRECT 1.5 mg/dL (<=3.0); PROTEIN TOTAL 7.5 g/dL (6.0-8.3)
[2023-07-25 08:17] LABS: DIFFERENTIAL COMMENT 1
[2023-07-25 08:34] LABS: CREATININE 7.3 mg/dL (0.6-1.3)
[2023-07-25 08:55] LABS: TROPONIN I HIGH SENSITIVITY 23 ng/L (3.0-53)
[2023-07-25 10:21] LABS: ANISOCYTOSIS 1+; PLATELET ESTIMATE NORMAL
[2023-07-25] MEDS: MORPHINE SULFATE 4 MG/ML INJ (FOR IV/IM USE) IV ONE (11:55)
[2023-07-25 12:00] VITALS: BP 152/44; PULSE 58; RESP 20; TEMP 97.2
[2023-07-25 15:15] VITALS: BP 152/55; PULSE 58; RESP 20; TEMP 97.2
[2023-07-25 16:00] VITALS: BP 106/52; PULSE 60; RESP 20; TEMP 97.1
[2023-07-25] MEDS ORDERED: DEXTROSE 50% WATER 50ML SYRINGE IV PRN (16:15)
[2023-07-25] MEDS ORDERED: DOCUSATE SODIUM 100MG CAPSULE PO PRN (16:15)
[2023-07-25] MEDS: BLOOD SUGAR DIAGNOSTIC STRIP TEST SCH (17:20)
[2023-07-25] MEDS: INSULIN LISPRO 100 UNITS/ML SUBCUT SCH (17:38)
[2023-07-25] MEDS: CALCIUM ACETATE 667MG CAPSULE PO SCH (17:38)
[2023-07-25 20:00] VITALS: BP 125/45; PULSE 62; RESP 18; TEMP 98
[2023-07-25] MEDS: GABAPENTIN 300MG CAPSULE PO SCH (20:24)
[2023-07-25] MEDS: CARVEDILOL 3.125 MG TABLET PO SCH (20:25)
[2023-07-25] MEDS: ATORVASTATIN CALCIUM 40MG TABLET PO SCH (20:25)
[2023-07-25] MEDS: HYDROCODONE/ACETAMINOPHEN 10/325MG TABLET PO PRN (20:26)
[2023-07-25] MEDS: FERROUS SULFATE 325MG TABLET PO SCH (20:34)
[2023-07-25] MEDS: ENTRESTO 49MG/51MG PO SCH (21:00)
[2023-07-25] MEDS ORDERED: SACUBITRIL/VALSARTAN 49MG/51MG TABLET PO NR (21:00)
[2023-07-26] VITALS: BP 101/39; PULSE 68; RESP 18; TEMP 97.5
[2023-07-26 04:00] VITALS: BP 121/46; PULSE 74; RESP 18; TEMP 97.7
[2023-07-26 06:52] LABS: BASOPHILS % 0.4 % (0.0-2.0); EOSINOPHILS % 0.2 % (0.0-5.0); HEMATOCRIT. 32.9 % (42.0-52.0); HEMOGLOBIN. 10.6 g/dL (14.0-18.0); LYMPHOCYTES % 7.3 % (20.0-50.0); MEAN CORPUSCULAR HEMOGLOBIN 28.5 pg (28.0-32.0); MEAN CORPUSCULAR HGB CONC 32.3 g/dL (31.0-37.0); MEAN CORPUSCULAR VOLUME 88.1 fL (80.0-94.0); MEAN PLATELET VOLUME 8.9 fl (7.4-10.4); NEUTROPHILS % 82.1 % (40.0-76.0); PLATELET 229 x1000/uL (130-400); RED BLOOD CELL COUNT 3.73 mill/uL (4.7-6.1); RED CELL DISTRIBUTION WIDTH 16.3 % (11.6-14.6); WHITE BLOOD COUNT 9.4 x1000/uL (4.5-11.0)
[2023-07-26 07:02] LABS: CHLORIDE 96 mEq/L (98-107); POTASSIUM 4.1 mEq/L (3.5-5.1); SODIUM 134 mEq/L (136-145)
[2023-07-26 07:03] LABS: CALCIUM 9.7 mg/dL (8.7-10.4); CARBON DIOXIDE 30 mEq/L (21-32)
[2023-07-26 07:07] LABS: UREA NITROGEN BLOOD 38 mg/dL (9-23)
[2023-07-26 07:08] LABS: GLUCOSE 76 mg/dL (70-105); TRIGLYCERIDE 76 mg/dL (0-150)
[2023-07-26 07:09] LABS: ALANINE AMINOTRANSFERASE 109 IU/L (10-49); LDL CHOLESTEROL 63 mg/dL (5-100)
[2023-07-26 07:10] LABS: ALBUMIN 3.7 g/dL (3.2-4.8); ASPARTATE AMINOTRANSFERASE 126 IU/L (<34); CHOLESTEROL 124 mg/dL (<200); HDL CHOLESTEROL 35 mg/dL (>55)
[2023-07-26 07:11] LABS: PHOSPHORUS 5.8 mg/dL (2.5-4.9)
[2023-07-26 08:00] VITALS: BP 105/48; PULSE 71; RESP 19; TEMP 97.7
[2023-07-26 08:09] LABS: BILIRUBIN TOTAL 3.1 mg/dL (0.1-1.0); CREATININE 9.2 mg/dL (0.6-1.3)
[2023-07-26] MEDS: OMEPRAZOLE 20MG CAPSULE EXTENDED RELEASE PO SCH (08:43)
[2023-07-26] MEDS: MINOXIDIL 10MG TABLET PO SCH (09:00)
[2023-07-26] MEDS ORDERED: NON FORMULARY PATIENT HOME MED PO SCH (09:00)
[2023-07-26] MEDS: FINASTERIDE 5MG TABLET PO SCH (09:00)
[2023-07-26] MEDS: FOLIC ACID/VITAMIN B COMP W-C TABLET PO SCH (09:01)
[2023-07-26] MEDS: DULOXETINE HCL 60MG DR CAPSULE PO SCH (09:01)
[2023-07-26] MEDS: ASPIRIN 81MG TABLET PO SCH (09:01)
[2023-07-26] MEDS: ALLOPURINOL 100 MG TABLET PO SCH (09:04)
[2023-07-26] MEDS: TAMSULOSIN HCL 0.4MG SR CAPSULE PO SCH (09:31)
[2023-07-26 12:00] VITALS: BP 129/62; PULSE 72; RESP 19; TEMP 97.9
[2023-07-26 16:00] VITALS: BP 109/44; PULSE 68; RESP 18; TEMP 97.9
[2023-07-26] MEDS ORDERED: NALOXONE HCL 0.4MG/ML VIAL IV PRN (19:00)
[2023-07-26 20:00] VITALS: BP 118/42; PULSE 72; RESP 19; TEMP 97.5
[2023-07-26] MEDS: CARVEDILOL 3.125 MG TABLET PO SCH (21:53)
[2023-07-27] VITALS (14 sets, daily range): BP systolic 106–125; BP diastolic 34–57; PULSE 66–84; RESP 16–19; TEMP 96.4–98.1; O2SAT 98
[2023-07-27] MEDS ORDERED: LOPERAMIDE HCL 2MG CAPSULE PO PRN (06:15)
[2023-07-27 06:26] LABS: CARBON DIOXIDE 27 mEq/L (21-32); CHLORIDE 95 mEq/L (98-107); POTASSIUM 4.1 mEq/L (3.5-5.1); SODIUM 133 mEq/L (136-145)
[2023-07-27] MEDS: LOPERAMIDE HCL 2MG CAPSULE PO PRN (06:27)
[2023-07-27 06:30] LABS: HEMATOCRIT. 31.6 % (42.0-52.0); HEMOGLOBIN. 10.3 g/dL (14.0-18.0); MEAN CORPUSCULAR HEMOGLOBIN 28.4 pg (28.0-32.0); MEAN CORPUSCULAR HGB CONC 32.5 g/dL (31.0-37.0); MEAN CORPUSCULAR VOLUME 87.2 fL (80.0-94.0); MEAN PLATELET VOLUME 8.8 fl (7.4-10.4); PLATELET 210 x1000/uL (130-400); RED BLOOD CELL COUNT 3.62 mill/uL (4.7-6.1); RED CELL DISTRIBUTION WIDTH 16.3 % (11.6-14.6); WHITE BLOOD COUNT 5.4 x1000/uL (4.5-11.0)
[2023-07-27 06:51] LABS: DIFFERENTIAL COMMENT 1
[2023-07-27 11:23] LABS: ANISOCYTOSIS 1+; PLATELET ESTIMATE NORMAL
[2023-07-27] MEDS: FINASTERIDE 5MG TABLET PO SCH (12:00)
[2023-07-27] MEDS: FAMOTIDINE 20MG TABLET PO SCH (12:00)
[2023-07-28] MEDS ORDERED: CARVEDILOL 3.125 MG TABLET PO SCH (09:00)
== END 2023-07-27 17:13 | disposition home or self-care (01) | DRG 444 ==
LOC: ER 06:20 → EDBEDREQTM 10:23 → EDBEDREQ 10:23 → 6EST 14:44
PROVIDERS: ADMIT Internal Medicine; ATTEND Internal Medicine
PROC: 5A1D70Z Performance of Urinary Filtration, Intermittent, Less than 6 Hours Per Day (ICD-10-PCS; principal; 2023-07-27)
DX: K80.40 Calculus of bile duct with cholecystitis, unspecified, without obstruction (principal); I50.23 Acute on chronic systolic (congestive) heart failure; N18.6 End stage renal disease; I13.2 Hypertensive heart and chronic kidney disease with heart failure and with stage 5 chronic kidney disease, or end stage renal disease; I42.9 Cardiomyopathy, unspecified; R74.01 Elevation of levels of liver transaminase levels; D64.9 Anemia, unspecified; E11.22 Type 2 diabetes mellitus with diabetic chronic kidney disease; E11.51 Type 2 diabetes mellitus with diabetic peripheral angiopathy without gangrene; E78.00 Pure hypercholesterolemia, unspecified; J44.9 Chronic obstructive pulmonary disease, unspecified; Z85.038 Personal history of other malignant neoplasm of large intestine; Z89.512 Acquired absence of left leg below knee; Z95.1 Presence of aortocoronary bypass graft; Z95.5 Presence of coronary angioplasty implant and graft; Z99.2 Dependence on renal dialysis
CPT/HCPCS: 36415; 74176; 76705; 80048; 80051; 80053; 80061; 80076; 82962; 83036; 84100; 84484; 85025; 86850; 86900; 90935; 93005; 99285

== ENCOUNTER 2023-08-26 05:47 | Emergency (ER) | payer MEDICARE, BC ==
[~2023-08-26] VITALS: Ht 175.3 cm; Wt 77.0 kg
[2023-08-26] MEDS ORDERED: ETOMIDATE 2MG/ML 10ML VIAL IV ONE (06:00)
[2023-08-26 06:06] VITALS: TEMP 98.2; O2SAT 80
[2023-08-26 06:26] VITALS: RESP 41
[2023-08-26] MEDS ORDERED: FUROSEMIDE 100MG/10ML VIAL IV STA (06:43)
[2023-08-26] MEDS: CALCIUM CHLORIDE 1GM/10ML SYR IV ONE (06:45)
[2023-08-26] MEDS ORDERED: DEXTROSE 50% WATER 50ML SYRINGE IV ONE (06:45)
[2023-08-26] MEDS: SODIUM BICARBONATE 8.4% 50MEQ/50ML SYR IV ONE (06:45)
[2023-08-26] MEDS ORDERED: INSULIN REGULAR (HUMULIN R) 1000UNITS/10ML VIAL IV ONE (06:45)
[2023-08-26] MEDS ORDERED: ALBUTEROL (0.083%) 2.5MG/3ML NEB HHN ONE (06:45)
[2023-08-26 06:57] LABS: CHLORIDE 95 mEq/L (98-107); POTASSIUM 5.9 mEq/L (3.5-5.1); SODIUM 134 mEq/L (136-145)
[2023-08-26 06:58] LABS: CALCIUM 9.7 mg/dL (8.7-10.4); CARBON DIOXIDE 12 mEq/L (21-32)
[2023-08-26 07:00] VITALS: BP 90/54
[2023-08-26] MEDS: AMIODARONE HCL 50MG/ML 3ML VIAL IV ONE (07:00)
[2023-08-26 07:21] VITALS: PULSE 99; RESP 18
[2023-08-26 07:21] LABS: GLUCOSE 115 mg/dL (70-105); UREA NITROGEN BLOOD 73 mg/dL (9-23)
[2023-08-26 07:38] LABS: BASOPHILS % 1.1 % (0.0-2.0); EOSINOPHILS % 0.3 % (0.0-5.0); LYMPHOCYTES % 29.8 % (20.0-50.0); MEAN CORPUSCULAR HEMOGLOBIN 27.3 pg (28.0-32.0); MEAN CORPUSCULAR HGB CONC 30.5 g/dL (31.0-37.0); MEAN CORPUSCULAR VOLUME 89.3 fL (80.0-94.0); MEAN PLATELET VOLUME 9.2 fl (7.4-10.4); MONOCYTES % 2.9 % (2.0-8.0); NEUTROPHILS % 65.9 % (40.0-76.0); PLATELET 352 x1000/uL (130-400); RED BLOOD CELL COUNT 2.35 mill/uL (4.7-6.1); RED CELL DISTRIBUTION WIDTH 22.7 % (11.6-14.6); WHITE BLOOD COUNT 9.4 x1000/uL (4.5-11.0)
[2023-08-26] MEDS ORDERED: NOREPINEPHRINE 8MG/250ML PMX 250 ML IV STA ×2 (07:40→07:49)
[2023-08-26 07:45] VITALS: PULSE 24; RESP 18
[2023-08-26 07:52] LABS: CREATININE 10.4 mg/dL (0.6-1.3); TROPONIN I HIGH SENSITIVITY 491 ng/L (3.0-53)
[2023-08-26 07:58] LABS: ADD RBC MORPHOLOGY YES; DIFFERENTIAL COMMENT 1
[2023-08-26 08:00] VITALS: PULSE 24; RESP 18
[2023-08-26 08:01] LABS: HEMOGLOBIN. 6.4 g/dL (14.0-18.0)
[2023-08-26 08:08] LABS: HEPATITIS B SURFACE ANTIGEN NEGATIVE (Negative)
[2023-08-26 08:29] LABS: HEPATITIS A AB IGM NEGATIVE (Negative); HEPATITIS B CORE AB IGM NEGATIVE (Negative)
[2023-08-26 08:30] LABS: HEPATITIS C AB NON REACTIVE (Neg) (Negative)
[2023-08-26 12:06] LABS: PLATELET ESTIMATE NORMAL; ROULEAUX 2+
[2023-08-26 12:07] LABS: ANISOCYTOSIS 1+
== END 2023-08-26 12:26 ==
LOC: ER 06:18
DX: J96.90 Respiratory failure, unspecified, unspecified whether with hypoxia or hypercapnia (principal); I46.9 Cardiac arrest, cause unspecified; E87.5 Hyperkalemia; E78.00 Pure hypercholesterolemia, unspecified; E11.9 Type 2 diabetes mellitus without complications; J44.1 Chronic obstructive pulmonary disease with (acute) exacerbation; I11.0 Hypertensive heart disease with heart failure; I50.9 Heart failure, unspecified; N28.9 Disorder of kidney and ureter, unspecified; Z79.899 Other long term (current) drug therapy; Z91.013 Allergy to seafood; Z98.890 Other specified postprocedural states
CPT/HCPCS: 86705; 71045; 93005; 96374; 96375; 80048; 82962; 83880; 85025; 87340; 84484; 36415; 86709; 31500; 36556; 99291; J1815; J3490 ×6; J0330; 94002; 94660; J0282; J1940